=== PATIENT | female | born 1950 | race Hispanic/Latino ===

== ENCOUNTER 2017-07-14 13:24 | Inpatient (IN) | payer MEDICARE ==
[2017-07-14 14:52] LABS: Anion Gap 20 mmol/L; BUN/Creatinine Ratio 10; Blood Urea Nitrogen 9 mg/dL (7-17); Calcium 9.1 mg/dL (8.4-10.2); Carbon Dioxide 22 mmol/L (22-30); Chloride 97.9 mmol/L (98-107); Glucose 102 mg/dL (65-100); Potassium 4.1 mmol/L (3.6-5.0); Sodium 136 mmol/L (137-145)
[2017-07-14 14:56] LABS: Basophils % (Auto) 2.1 % (0.0-1.8); Eosinophils % (Auto) 4.2 % (0.0-4.3); Hematocrit 36.1 % (30.3-42.9); Hemoglobin 12.1 gm/dl (10.1-14.3); Mean Corpuscular HGB Conc 34 % (30-34); Mean Corpuscular Hemoglobin 32 pg (28-32); Mean Corpuscular Volume 94 fl (79-97); Platelet Count 311 K/mm3 (140-440); Red Blood Count 3.83 M/mm3 (3.65-5.03); Red Cell Distribution Width 13.6 % (13.2-15.2); White Blood Count 7.1 K/mm3 (4.5-11.0)
--- NOTE | 2017-07-14 15:20 | Emergency Department Report ---
History of Present Illness - General Chief Complaint: Psych Stated Complaint: SUICIDAL Time Seen by Provider: 07/14/17 15:10 Source: patient Mode of arrival: Ambulatory Limitations: No Limitations - History of Present Illness Initial Comments: Patient is a poor historian and somewhat lethargic. She is not very cooperative. She states that she took an overdose. She states that she removed 30 Effexor from a blister pack and took them all at or about 10 PM last night. She states that she might have taken some Klonopin but isn't sure. She also states she isn't sure if she took any other type of medication. The patient has a history of prior clonidine overdose she seems to be saying. She has a history of bipolar disorder. She claims that she took this overdose with intent of self-harm. She is laying on the gurney peacefully. She has no specific complaint. MD Complaint: intentional overdose -: hour(s) Intent: suicide attempt Context: Intentional Overdose: other (bipolar disorder) Associated Symptoms: depression Treatments Prior to Arrival: none - Related Data Home Medications Medication Instructions Recorded Confirmed Last Taken ARIPiprazole [Abilify] 10 mg PO DAILY 03/26/16 03/26/16 Unknown AtorvaSTATin [Lipitor] 20 mg PO DAILY 03/26/16 03/26/16 Unknown Lisinopril [Zestril TAB] 10 mg PO QDAY 03/26/16 03/26/16 Unknown Phenytoin [Dilantin] 100 mg PO BID 03/26/16 03/26/16 Unknown amLODIPine [Norvasc] 5 mg PO DAILY 03/26/16 03/26/16 Unknown Previous Rx's Medication Instructions Recorded Last Taken Type [place] Carbonate [Eskalith] 300 mg PO BID #60 capsule 03/30/16 Unknown Rx Allergies Allergy/AdvReac Type Severity Reaction Status Date / Time lidocaine Allergy Itching Verified 07/14/17 13:58 hydrochlorothiazide AdvReac Unknown Verified 07/30/15 01:01 ED Review of Systems ROS: Stated complaint: SUICIDAL Other details as noted in HPI Comment: All other systems reviewed and negative Psychiatric: as per HPI ED Past Medical Hx - Past Medical History Hx Hypertension: Yes Hx Seizures: Yes Hx Psychiatric Treatment: Yes (depression, staying @ [facility].) Additional medical history: HIGH CHOLESTEROL - Surgical History Hx Cholecystectomy: Yes Hx Appendectomy: Yes Additional Surgical History: back surgery x 2. colon surgery - Social History Smoking Status: Current Every Day Smoker Substance Use Type: None - Medications Home Medications: Home Medications Medication Instructions Recorded Confirmed Last Taken Type ARIPiprazole [Abilify] 10 mg PO DAILY 03/26/16 03/26/16 Unknown History AtorvaSTATin [Lipitor] 20 mg PO DAILY 03/26/16 03/26/16 Unknown History Lisinopril [Zestril TAB] 10 mg PO QDAY 03/26/16 03/26/16 Unknown History Phenytoin [Dilantin] 100 mg PO BID 03/26/16 03/26/16 Unknown History amLODIPine [Norvasc] 5 mg PO DAILY 03/26/16 03/26/16 Unknown History Manuel Garcia Ii Carbonate [Eskalith] 300 mg PO BID #60 capsule 03/30/16 Unknown Rx ED Physical Exam - General Limitations: No Limitations General appearance: alert, in no apparent distress - Head Head exam: Present: atraumatic, normocephalic - Eye Eye exam: Present: normal appearance, PERRL, EOMI. Absent: scleral icterus - ENT ENT exam: Present: mucous membranes moist - Neck Neck exam: Present: normal inspection - Respiratory Respiratory exam: Present: normal lung sounds bilaterally. Absent: respiratory distress - Cardiovascular Cardiovascular Exam: Present: regular rate, normal rhythm. Absent: systolic murmur, diastolic murmur, rubs, gallop - GI/Abdominal GI/Abdominal exam: Present: soft, normal bowel sounds. Absent: distended, tenderness, guarding, rebound, rigid - Extremities Exam Extremities exam: Present: normal inspection - Back Exam Back exam: Present: normal inspection - Neurological Exam Neurological exam: Present: alert, oriented X3, CN II-XII intact. Absent: motor sensory deficit - Psychiatric Psychiatric exam: Present: normal mood, flat affect - Skin Skin exam: Present: warm, dry, intact, normal color. Absent: rash ED Course Vital Signs 07/14/17 13:59 Temperature 97.8 F Pulse Rate 66 Respiratory 16 Rate Blood Pressure 114/70 O2 Sat by Pulse 99 Oximetry - Reevaluation(s) Reevaluation #1: Patient will be placed on a radiographer cardiac catheterization. She will be admitted to the medical service. She is currently in stable condition. 07/14/17 15:23 ED Medical Decision Making - Lab Data Result diagrams: 07/14/17 14:19 07/14/17 14:19 Laboratory Results - last 24 hr 07/14/17 07/14/17 07/14/17 14:19 14:19 14:19 WBC 7.1 RBC 3.83 Hgb 12.1 Hct 36.1 MCV 94 MCH 32 MCHC 34 RDW 13.6 Plt Count 311 Lymph % (Auto) 46.9 H [place] % (Auto) 7.2 Eos % (Auto) 4.2 Baso % (Auto) 2.1 H Lymph # 3.3 [place] # 0.5 Eos # 0.3 Baso # 0.1 Seg Neutrophils % 39.6 L Seg Neutrophils # 2.8 Sodium 136 L Potassium 4.1 Chloride 97.9 L Carbon Dioxide 22 Anion Gap 20 BUN 9 Creatinine 0.9 Estimated GFR > 60 BUN/Creatinine Ratio 10 Glucose 102 H Calcium 9.1 Plasma/Serum Alcohol < 0.01 - EKG Data -: EKG Interpreted by Ne EKG shows normal: sinus rhythm Rate: normal - EKG Data When compared to previous EKG there are: previous EKG unavailable Interpretation: other (right bundle branch block prior EKG for comparison. A tray she'll conduction delay. Borderline QTC prolongation) Critical care attestation.: If time is entered above; I have spent that time in minutes in the direct care of this critically ill patient, excluding procedure time. ED Disposition Clinical Impression: Right bundle branch block Overdose Qualifiers: Encounter type: initial encounter Injury intent: intentional self-harm Qualified Code(s): T50.902A - Poisoning by unspecified drugs, medicaments and biological substances, intentional self-harm, initial encounter Bipolar disorder Qualifiers: Active/Remission status: currently active Current bipolar episode type: depressed Current episode severity: moderate Qualified Code(s): F31.32 - Bipolar disorder, current episode depressed, moderate Disposition: DC-09 OP ADMIT IP TO THIS HOSP Is pt being admited?: Yes Does the pt Need Aspirin: Yes Condition: Stable Time of Disposition: 15:25
--- NOTE | 2017-07-14 15:40 | XRay Report ---
Chest 2 views: Compared to 03/26/16. History: Chest pain. Findings: Normal cardiomediastinal silhouette. Trachea is midline. No consolidation, pneumothorax or pleural effusion. Impression: No acute cardiopulmonary findings.
[2017-07-14 15:58] LABS: Alanine Aminotransferase 14 units/L (7-56); Albumin 3.9 g/dL (3.9-5); Albumin/Globulin Ratio 1.3 %; Alkaline Phosphatase 102 units/L (35-129); Bilirubin,Total < 0.20 mg/dL (0.1-1.2)
[2017-07-14 16:04] LABS: Salicylate < 0.3 mg/dL (2.8-20.0)
[2017-07-14 16:05] LABS: Bilirubin,Direct < 0.2 mg/dL (0-0.2)
[2017-07-14 18:12] LABS: Urine Drugs of Abuse Note Disclamer
[2017-07-14 18:47] LABS: Bilirubin,Urine NEG (Negative); Blood,Urine NEG (Negative); Ketones,Urine NEG (Negative); Leukocyte Esterase,Urine LG (Negative); Mucus,Urine FEW /HPF; Nitrite,Urine NEG (Negative); Protein,Urine <15 mg/dL mg/dL (Negative); Urobilinogen,Urine < 2.0 mg/dL (<2.0)
[2017-07-14] MEDS ORDERED: DULCOLAX PR PRN (19:07)
[2017-07-14] MEDS ORDERED: TYLENOL PO PRN (19:07)
[2017-07-14] MEDS ORDERED: MILK OF MAGNESIA PO PRN (19:07)
[2017-07-14] MEDS ORDERED: ZOFRAN IV PRN (19:07)
--- NOTE | 2017-07-14 19:18 | History and Physical Report ---
History of Present Illness Date of examination: 07/14/17 Date of admission: 07/14/17 15:26 Chief complaint: Overdose History of present illness: 67-year-old female with a history of hypertension and bipolar disorder presents to the ED after a intentional drug overdose with the medication Effexor. Patient to 30 Effexor tablets of 75 mg and ingested them at one time. Patient tells me that she did not take any other medication besides this. Patient is somewhat lethargic poor historian secondary to inability to fully cooperate. And is arousable however would not answer questions fully. She states she feels okay now and just goes back to lay down. No rash in any other appropriate questions. Do not answer why she decided to take the medications. Past History Past Medical History: hypertension. denies: acute ID, anemia, CAD, cancer, ESRD , GERD, HIV/AIDS, liver disease, migraines, seizures Past Surgical History: Other (back surgery) Social history: lives with family, smoking, full code. denies: alcohol abuse, prescription drug abuse Family history: no significant family history Medications and Allergies Allergies Allergy/AdvReac Type Severity Reaction Status Date / Time lidocaine Allergy Itching Verified 07/14/17 13:58 hydrochlorothiazide AdvReac Unknown Verified 07/30/15 01:01 Home Medications Medication Instructions Recorded Confirmed Last Taken Type ARIPiprazole [Abilify] 10 mg PO DAILY 03/26/16 03/26/16 Unknown History AtorvaSTATin [Lipitor] 20 mg PO DAILY 03/26/16 03/26/16 Unknown History Lisinopril [Zestril TAB] 10 mg PO QDAY 03/26/16 03/26/16 Unknown History Phenytoin [Dilantin] 100 mg PO BID 03/26/16 03/26/16 Unknown History amLODIPine [Norvasc] 5 mg PO DAILY 03/26/16 03/26/16 Unknown History [place] Carbonate [Eskalith] 300 mg PO BID #60 capsule 03/30/16 Unknown Rx Active Meds: Active Medications Acetaminophen (Tylenol) 650 mg PO Q4H PRN PRN Reason: Pain MILD(1-3)/Fever >100.5/WRIGHT Amlodipine Besylate (Norvasc) 5 mg PO DAILY BUDDY Aripiprazole (Abilify) 10 mg PO DAILY B[facility] Bisacodyl (Dulcolax) 10 mg [place] QDAY PRN PRN Reason: Constipation unrelieved by MOM Enoxaparin Sodium (Lovenox) 30 mg SUB-Q QDAY [facility] Famotidine (Pepcid) 20 mg IV BID [facility] Sodium Chloride (Nacl 0.9% 1000 Ml) 1,000 mls @ 125 mls/hr IV DIRECT BUDDY Lisinopril (Zestril) 10 mg PO QDAY [facility] [place] Carbonate (Eskalith) 300 mg PO BID [facility] Magnesium Hydroxide (Milk Of Magnesia) 30 ml PO Q4H PRN PRN Reason: Constipation Ondansetron HCl (Zofran) 4 mg IV Q8H PRN PRN Reason: N/V unrelieved by Reglan Phenytoin (Dilantin) 100 mg PO BID [facility] Review of Systems ROS unobtainable: due to mental status Constitutional: no chills, no anorexia, no fatigue Ears, nose, mouth and throat: no tinnitis, no nasal congestion, no dysphagia Cardiovascular: no chest pain, no orthopnea, no palpitations, no rapid/ irregular heart beat, no edema, no syncope, no lightheadedness, no shortness of breath, no dyspnea on exertion, no paroxysmal nocturnal dyspnea, no claudication , no phlebitis, no high blood pressure, no leg edema Respiratory: no cough, no excessive sputum, no shortness of breath Gastrointestinal: no hematochezia, no heartburn Musculoskeletal: low back pain, no neck stiffness, no neck pain, no shooting arm pain, no arm numbness/tingling, no shooting leg pain, no leg numbness/ tingling, no morning stiffness, no muscle weakness Neurological: seizures, no head injury, no transient paralysis, no paralysis, no weakness, no numbness, no change in speech, no confusion, no memory loss, no changes in smell/taste Psychiatric: anxiety, insomnia, suicidal ideation, depression, mood swings, no memory loss, no change in sleep habits, no sleep disturbances, no hypersomnia, no change in appetite, no change in libido, no disorientation, no hallucinations , no paranoia, no hopelessness, no anhedonia, no anxiety attacks, no difficulties concentrating, no irritability, no sadness/tearfullness Endocrine: no cold intolerance Hematologic/Lymphatic: no easy bleeding, no lymphadenopathy Exam - Constitutional Vitals: Temp Pulse Resp BP Pulse Ox 98.6 F 70 18 114/70 99 07/14/17 16:00 07/14/17 18:09 07/14/17 16:00 07/14/17 13:59 07/14/17 16:00 General appearance: Present: no acute distress, well-nourished - EENT Eyes: Present: PERRL ENT: hearing intact, clear oral mucosa - Neck Neck: Present: supple, normal ROM - Respiratory Respiratory effort: normal Respiratory: bilateral: CTA - Cardiovascular Heart Sounds: Present: S1 & S2. Absent: rub, click - Extremities Extremities: pulses symmetrical, No edema Peripheral Pulses: within normal limits - Abdominal General gastrointestinal: Present: soft, non-tender, non-distended, normal bowel sounds Female genitourinary: Present: normal - Integumentary Integumentary: Present: clear, warm, dry - Musculoskeletal Musculoskeletal: gait normal, strength equal bilaterally - Psychiatric Psychiatric: appropriate mood/affect, intact judgment & insight - Neurologic Neurologic: CNII-XII intact, moves all extremities Results - Labs CBC & Chem 7: 07/14/17 14:19 07/14/17 14:19 Labs: Laboratory Last Values WBC 7.1 K/mm3 (4.5-11.0) 07/14/17 14:19 RBC 3.83 M/mm3 (3.65-5.03) 07/14/17 14:19 Hgb 12.1 gm/dl (10.1-14.3) 07/14/17 14:19 Hct 36.1 % (30.3-42.9) 07/14/17 14:19 MCV 94 fl (79-97) 07/14/17 14:19 MCH 32 pg (28-32) 07/14/17 14:19 MCHC 34 % (30-34) 07/14/17 14:19 RDW 13.6 % (13.2-15.2) 07/14/17 14:19 Plt Count 311 K/mm3 (140-440) 07/14/17 14:19 Lymph % (Auto) 46.9 % (13.4-35.0) H 07/14/17 14:19 [place] % (Auto) 7.2 % (0.0-7.3) 07/14/17 14:19 Eos % (Auto) 4.2 % (0.0-4.3) 07/14/17 14:19 Baso % (Auto) 2.1 % (0.0-1.8) H 07/14/17 14:19 Lymph # 3.3 K/mm3 (1.2-5.4) 07/14/17 14:19 [place] # 0.5 K/mm3 (0.0-0.8) 07/14/17 14:19 Eos # 0.3 K/mm3 (0.0-0.4) 07/14/17 14:19 Baso # 0.1 K/mm3 (0.0-0.1) 07/14/17 14:19 Seg Neutrophils % 39.6 % (40.0-70.0) L 07/14/17 14:19 Seg Neutrophils # 2.8 K/mm3 (1.8-7.7) 07/14/17 14:19 Sodium 136 mmol/L (137-145) L 07/14/17 14:19 Potassium 4.1 mmol/L (3.6-5.0) 07/14/17 14:19 Chloride 97.9 mmol/L (98-107) L 07/14/17 14:19 Carbon Dioxide 22 mmol/L (22-30) 07/14/17 14:19 Anion Gap 20 mmol/L 07/14/17 14:19 BUN 9 mg/dL (7-17) 07/14/17 14:19 Creatinine 0.9 mg/dL (0.7-1.2) 07/14/17 14:19 Estimated GFR > 60 ml/min 07/14/17 14:19 BUN/Creatinine Ratio 10 % 07/14/17 14:19 Glucose 102 mg/dL (65-100) H 07/14/17 14:19 Calcium 9.1 mg/dL (8.4-10.2) 07/14/17 14:19 Total Bilirubin < 0.20 mg/dL (0.1-1.2) 07/14/17 15:18 Direct Bilirubin < 0.2 mg/dL (0-0.2) 07/14/17 15:18 Indirect Bilirubin 0.0 mg/dL 07/14/17 15:18 AST 15 units/L (5-40) 07/14/17 15:18 ALT 14 units/L (7-56) 07/14/17 15:18 Alkaline Phosphatase 102 units/L (35-129) 07/14/17 15:18 Total Creatine Kinase 107 units/L (30-135) 07/14/17 15:18 Total Protein 7.0 g/dL (6.3-8.2) 07/14/17 15:18 Albumin 3.9 g/dL (3.9-5) 07/14/17 15:18 Albumin/Globulin Ratio 1.3 % 07/14/17 15:18 Urine Color Yellow (Yellow) 07/14/17 18:00 Urine Turbidity Clear (Clear) 07/14/17 18:00 Urine pH 5.0 (5.0-7.0) 07/14/17 18:00 Ur Specific [place] 1.009 (1.003-1.030) 07/14/17 18:00 Urine Protein <15 mg/dl mg/dL (Negative) 07/14/17 18:00 Urine Glucose (UA) Neg mg/dL (Negative) 07/14/17 18:00 Urine Ketones Neg mg/dL (Negative) 07/14/17 18:00 Urine Blood Neg (Negative) 07/14/17 18:00 Urine Nitrite Neg (Negative) 07/14/17 18:00 Urine Bilirubin Neg (Negative) 07/14/17 18:00 Urine Urobilinogen < 2.0 mg/dL (<2.0) 07/14/17 18:00 Ur Leukocyte Esterase Lg (Negative) 07/14/17 18:00 Urine WBC (Auto) 118.0 /HPF (0.0-6.0) H 07/14/17 18:00 Urine RBC (Auto) 7.0 /HPF (0.0-6.0) 07/14/17 18:00 U Epithel Cells (Auto) 2.0 /HPF (0-13.0) 07/14/17 18:00 Urine Mucus Few /HPF 07/14/17 18:00 Salicylates < 0.3 mg/dL (2.8-20.0) L 07/14/17 15:18 Urine Opiates Screen Presumptive negative 07/14/17 18:00 Urine Methadone Screen Presumptive negative 07/14/17 18:00 Acetaminophen < 15.0 ug/mL (10.0-30.0) 07/14/17 15:18 Ur Barbiturates Screen Presumptive negative 07/14/17 18:00 Phenytoin 1.7 ug/mL (10.0-20.0) L 07/14/17 15:18 Ur Phencyclidine Scrn Presumptive negative 07/14/17 18:00 Ur Amphetamines Screen Presumptive negative 07/14/17 18:00 Phenobarbital < 2.4 mg/L (15.0-40.0) L 07/14/17 15:18 U Benzodiazepines Scrn Presumptive positive 07/14/17 18:00 Urine Cocaine Screen Presumptive negative 07/14/17 18:00 U Marijuana (THC) Screen Presumptive negative 07/14/17 18:00 Drugs of Abuse Note Disclamer 07/14/17 18:00 Plasma/Serum Alcohol < 0.01 gm% (0-0.07) 07/14/17 14:19 - Imaging and Cardiology EKG: image reviewed Assessment and Plan Advance Directives: Yes VTE prophylaxis?: Chemical Plan of care discussed with patient/family: Yes - Patient Problems (1) Bipolar disorder Current Visit: Yes Status: Acute Qualifiers: Active/Remission status: currently active Current bipolar episode type: depressed Current episode severity: moderate Psychotic features: P Most recent bipolar episode type: M Qualified Code(s): F31.32 - Bipolar disorder, current episode depressed, moderate Plan to address problem: At this time will not give patient Abilify and antidepressant at this time. Unsure exactly what patient has taken at this point. I do feel comfortable treating her for tension and seizure medications with Dilantin. Antipsychotic medications or antidepressants at this time. Patient appears hemodynamically stable at this time. I did review EKG and did not appreciate any prolonged QT interval. Did see borderline right bundle. Nothing acute. Also on physical exam no arrhythmia noted problems with blood pressure or pulse. No clear electrolyte abnormalities well. (2) Overdose Current Visit: Yes Status: Acute Qualifiers: Encounter type: initial encounter Injury intent: intentional self-harm Qualified Code(s): T50.902A - Poisoning by unspecified drugs, medicaments and biological substances, intentional self-harm, initial encounter Plan to address problem: As mentioned above I did not see any prolonged QT interval. No electrolyte abnormalities. Patient vitals has been stable. Patient does appear to be serious about suicide. Patient also was had a previous attempted suicide before patient is taken seriously and will place patient on 1013 and have psychiatry evaluation. (3) Seizure disorder Current Visit: No Status: Acute Plan to address problem: No seizure but will resume seizure medications Dilantin level was therapeutic. (4) Hypertension Current Visit: No Status: Chronic Qualifiers: Hypertension type: H Plan to address problem: Resume antihypertensives. Patient hemoglobin stable.
[2017-07-14] MEDS: DILANTIN PO SCH (21:28)
[2017-07-14] MEDS: PEPCID IV SCH (21:28)
[2017-07-14] MEDS: ESKALITH PO SCH (21:28)
[2017-07-14] MEDS ORDERED: BENADRYL PO ONE (22:45)
[2017-07-15] MEDS: NACL 0.9% 1000 ML 1,000 ML IV SCH ×2 (03:48→11:11)
[2017-07-15 05:10] LABS: Eosinophils % (Auto) 6.7 % (0.0-4.3); Hematocrit 33.3 % (30.3-42.9); Hemoglobin 11.3 gm/dl (10.1-14.3); Mean Corpuscular HGB Conc 34 % (30-34); Mean Corpuscular Hemoglobin 32 pg (28-32); Mean Corpuscular Volume 94 fl (79-97); Platelet Count 276 K/mm3 (140-440); Red Blood Count 3.53 M/mm3 (3.65-5.03); Red Cell Distribution Width 13.8 % (13.2-15.2); White Blood Count 5.2 K/mm3 (4.5-11.0)
[2017-07-15] MEDS ORDERED: ZESTRIL PO SCH (10:00)
[2017-07-15] MEDS ORDERED: ABILIFY PO SCH (10:00)
[2017-07-15] MEDS ORDERED: NORVASC PO SCH (10:00)
[2017-07-15] MEDS ORDERED: LOVENOX SUB-Q SCH (10:00)
--- NOTE | 2017-07-15 10:44 | Progress Note ---
Assessment and Plan Assessment and plan: 67-year-old female with a history of hypertension and bipolar disorder presents to the ED after a intentional drug overdose with the medication Effexor. Patient to 30 Effexor tablets of 75 mg and ingested them at one time. Patient tells me that she did not take any other medication besides this. Patient is somewhat lethargic poor historian secondary to inability to fully cooperate. And is arousable however would not answer questions fully. She states she feels okay now and just goes back to lay down. No rash in any other appropriate questions. Do not answer why she decided to take the medications (1) Bipolar disorder Current Visit: Yes Status: Acute Qualifiers: Active/Remission status: currently active Current bipolar episode type: depressed Current episode severity: moderate Psychotic features: P Most recent bipolar episode type: M Qualified Code(s): F31.32 - Bipolar disorder, current episode depressed, moderate Plan to address problem: At this time will not give patient Abilify and antidepressant at this time. Unsure exactly what patient has taken at this point. I do feel comfortable treating her for tension and seizure medications with Dilantin. Antipsychotic medications or antidepressants at this time. Patient appears hemodynamically stable at this time. I did review EKG and did not appreciate any prolonged QT interval. Did see borderline right bundle. Nothing acute. Also on physical exam no arrhythmia noted problems with blood pressure or pulse. No clear electrolyte abnormalities well. (2) Overdose Current Visit: Yes Status: Acute Qualifiers: Encounter type: initial encounter Injury intent: intentional self-harm Qualified Code(s): T50.902A - Poisoning by unspecified drugs, medicaments and biological substances, intentional self-harm, initial encounter Plan to address problem: As mentioned above I did not see any prolonged QT interval. No electrolyte abnormalities. Patient vitals has been stable. Patient does appear to be serious about suicide. Patient also was had a previous attempted suicide before patient is taken seriously and will place patient on 1013 and have psychiatry evaluation. (3) Seizure disorder Current Visit: No Status: Acute Plan to address problem: No seizure but will resume seizure medications Dilantin level was therapeutic. (4) Hypertension Current Visit: No Status: Chronic Qualifiers: Hypertension type: H Plan to address problem: Resume antihypertensives. Patient hemoglobin stable. Hospitalist Physical - Constitutional Vitals: Temp Pulse Resp BP Pulse Ox 95.6 F L 67 20 125/68 96 07/15/17 07:23 07/15/17 07:23 07/15/17 07:23 07/15/17 07:23 07/15/17 07:23 General appearance: Present: no acute distress, well-nourished Results - Labs CBC & Chem 7: 07/15/17 04:46 07/14/17 14:19 Labs: Laboratory Last Values WBC 5.2 K/mm3 (4.5-11.0) 07/15/17 04:46 RBC 3.53 M/mm3 (3.65-5.03) L 07/15/17 04:46 Hgb 11.3 gm/dl (10.1-14.3) 07/15/17 04:46 Hct 33.3 % (30.3-42.9) 07/15/17 04:46 MCV 94 fl (79-97) 07/15/17 04:46 MCH 32 pg (28-32) 07/15/17 04:46 MCHC 34 % (30-34) 07/15/17 04:46 RDW 13.8 % (13.2-15.2) 07/15/17 04:46 Plt Count 276 K/mm3 (140-440) 07/15/17 04:46 Lymph % (Auto) 39.1 % (13.4-35.0) H 07/15/17 04:46 [place] % (Auto) 10.8 % (0.0-7.3) H 07/15/17 04:46 Eos % (Auto) 6.7 % (0.0-4.3) H 07/15/17 04:46 Baso % (Auto) 1.0 % (0.0-1.8) 07/15/17 04:46 Lymph # 2.0 K/mm3 (1.2-5.4) 07/15/17 04:46 [place] # 0.6 K/mm3 (0.0-0.8) 07/15/17 04:46 Eos # 0.3 K/mm3 (0.0-0.4) 07/15/17 04:46 Baso # 0.1 K/mm3 (0.0-0.1) 07/15/17 04:46 Seg Neutrophils % 42.4 % (40.0-70.0) 07/15/17 04:46 Seg Neutrophils # 2.2 K/mm3 (1.8-7.7) 07/15/17 04:46 Sodium 136 mmol/L (137-145) L 07/14/17 14:19 Potassium 4.1 mmol/L (3.6-5.0) 07/14/17 14:19 Chloride 97.9 mmol/L (98-107) L 07/14/17 14:19 Carbon Dioxide 22 mmol/L (22-30) 07/14/17 14:19 Anion Gap 20 mmol/L 07/14/17 14:19 BUN 9 mg/dL (7-17) 07/14/17 14:19 Creatinine 0.9 mg/dL (0.7-1.2) 07/14/17 14:19 Estimated GFR > 60 ml/min 07/14/17 14:19 BUN/Creatinine Ratio 10 % 07/14/17 14:19 Glucose 102 mg/dL (65-100) H 07/14/17 14:19 Calcium 9.1 mg/dL (8.4-10.2) 07/14/17 14:19 Total Bilirubin < 0.20 mg/dL (0.1-1.2) 07/14/17 15:18 Direct Bilirubin < 0.2 mg/dL (0-0.2) 07/14/17 15:18 Indirect Bilirubin 0.0 mg/dL 07/14/17 15:18 AST 15 units/L (5-40) 07/14/17 15:18 ALT 14 units/L (7-56) 07/14/17 15:18 Alkaline Phosphatase 102 units/L (35-129) 07/14/17 15:18 Total Creatine Kinase 107 units/L (30-135) 07/14/17 15:18 Total Protein 7.0 g/dL (6.3-8.2) 07/14/17 15:18 Albumin 3.9 g/dL (3.9-5) 07/14/17 15:18 Albumin/Globulin Ratio 1.3 % 07/14/17 15:18 Urine Color Yellow (Yellow) 07/14/17 18:00 Urine Turbidity Clear (Clear) 07/14/17 18:00 Urine pH 5.0 (5.0-7.0) 07/14/17 18:00 Ur Specific [place] 1.009 (1.003-1.030) 07/14/17 18:00 Urine Protein <15 mg/dl mg/dL (Negative) 07/14/17 18:00 Urine Glucose (UA) Neg mg/dL (Negative) 07/14/17 18:00 Urine Ketones Neg mg/dL (Negative) 07/14/17 18:00 Urine Blood Neg (Negative) 07/14/17 18:00 Urine Nitrite Neg (Negative) 07/14/17 18:00 Urine Bilirubin Neg (Negative) 07/14/17 18:00 Urine Urobilinogen < 2.0 mg/dL (<2.0) 07/14/17 18:00 Ur Leukocyte Esterase Lg (Negative) 07/14/17 18:00 Urine WBC (Auto) 118.0 /HPF (0.0-6.0) H 07/14/17 18:00 Urine RBC (Auto) 7.0 /HPF (0.0-6.0) 07/14/17 18:00 U Epithel Cells (Auto) 2.0 /HPF (0-13.0) 07/14/17 18:00 Urine Mucus Few /HPF 07/14/17 18:00 Salicylates < 0.3 mg/dL (2.8-20.0) L 07/14/17 15:18 Urine Opiates Screen Presumptive negative 07/14/17 18:00 Urine Methadone Screen Presumptive negative 07/14/17 18:00 Acetaminophen < 15.0 ug/mL (10.0-30.0) 07/14/17 15:18 Ur Barbiturates Screen Presumptive negative 07/14/17 18:00 Phenytoin 1.7 ug/mL (10.0-20.0) L 07/14/17 15:18 Ur Phencyclidine Scrn Presumptive negative 07/14/17 18:00 Ur Amphetamines Screen Presumptive negative 07/14/17 18:00 Phenobarbital < 2.4 mg/L (15.0-40.0) L 07/14/17 15:18 U Benzodiazepines Scrn Presumptive positive 07/14/17 18:00 Urine Cocaine Screen Presumptive negative 07/14/17 18:00 U Marijuana (THC) Screen Presumptive negative 07/14/17 18:00 Drugs of Abuse Note Disclamer 07/14/17 18:00 Plasma/Serum Alcohol < 0.01 gm% (0-0.07) 07/14/17 14:19
[2017-07-15] MEDS: ESKALITH PO SCH (11:13)
[2017-07-15] MEDS: PEPCID IV SCH (11:14)
[2017-07-15] MEDS: LOVENOX SUB-Q SCH ×2 (11:14→11:21)
[2017-07-15] MEDS: DILANTIN PO SCH (11:14)
[2017-07-15] MEDS ORDERED: MOTRIN PO PRN (13:16)
[2017-07-15] MEDS ORDERED: HABITROL TD SCH (15:00)
--- NOTE | 2017-07-15 16:28 | Discharge Summary ---
Providers - Providers Date of Admission: 07/14/17 15:26 Attending physician: JEREMY PIEDRA MD Primary care physician: MARBLE HELPER Hospitalization Condition: Stable Hospital course: 67-year-old female with a history of hypertension and bipolar disorder presents to the ED after a intentional drug overdose with the medication Effexor. Patient to 30 Effexor tablets of 75 mg and ingested them at one time. Patient tells me that she did not take any other medication besides this. Patient is somewhat lethargic poor historian secondary to inability to fully cooperate. And is arousable however would not answer questions fully. She states she feels okay now and just goes back to lay down. No rash in any other appropriate questions. Do not answer why she decided to take the medications (1) Bipolar disorder Current Visit: Yes Status: Acute Qualifiers: Active/Remission status: currently active Current bipolar episode type: depressed Current episode severity: moderate Psychotic features: P Most recent bipolar episode type: M Qualified Code(s): F31.32 - Bipolar disorder, current episode depressed, moderate Plan to address problem: At this time will not give patient Abilify and antidepressant at this time. Unsure exactly what patient has taken at this point. I do feel comfortable treating her for tension and seizure medications with Dilantin. Antipsychotic medications or antidepressants at this time. Patient appears hemodynamically stable at this time. I did review EKG and did not appreciate any prolonged QT interval. Did see borderline right bundle. Nothing acute. Also on physical exam no arrhythmia noted problems with blood pressure or pulse. No clear electrolyte abnormalities well. (2) Overdose Current Visit: Yes Status: Acute Qualifiers: Encounter type: initial encounter Injury intent: intentional self-harm Qualified Code(s): T50.902A - Poisoning by unspecified drugs, medicaments and biological substances, intentional self-harm, initial encounter Plan to address problem: As mentioned above I did not see any prolonged QT interval. No electrolyte abnormalities. Patient vitals has been stable. Patient does appear to be serious about suicide. Patient also was had a previous attempted suicide before patient is taken seriously and will place patient on 1013 and have psychiatry evaluation. (3) Seizure disorder Current Visit: No Status: Acute Plan to address problem: No seizure but will resume seizure medications Dilantin level was therapeutic. (4) Hypertension Current Visit: No Status: Chronic Qualifiers: Hypertension type: H Plan to address problem: Resume antihypertensives. Patient hemoglobin stable. Disposition: DC/TX-65 PSY HOSP/PSY UNIT Exam - Constitutional Vitals: Temp Pulse Resp BP Pulse Ox 98.3 F 85 18 129/62 97 07/15/17 13:38 07/15/17 13:38 07/15/17 15:20 07/15/17 13:38 07/15/17 11:16 Plan Activity: advance as tolerated, fall precautions Diet: regular Follow up with: PRIMARY CAREMD [Primary Care Provider] - 7 Days
[2017-07-15 16:35] VITALS: BP 114/59
== END 2017-07-15 19:45 | DRG 918 ==
LOC: ED 13:24 → 4A 15:26
PROVIDERS: ADMIT Internal Medicine; ATTEND Internal Medicine
DX: T43.212A Poisoning by selective serotonin and norepinephrine reuptake inhibitors, intentional self-harm, initial encounter (principal); I45.10 Unspecified right bundle-branch block; F31.9 Bipolar disorder, unspecified; I10 Essential (primary) hypertension; G40.909 Epilepsy, unspecified, not intractable, without status epilepticus; Y92.89 Other specified places as the place of occurrence of the external cause; Z88.8 Allergy status to other drugs, medicaments and biological substances
CPT/HCPCS: 36415; 71020; 80048; 80074; 80184; 80185; 80307; 80320; 81001; 82550; 85025; 93005; 93010; G0480; J1650; J7030

== ENCOUNTER 2017-07-22 19:43 | Emergency (ER) | payer MEDICAID, MEDICARE ==
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
[2017-07-22] MEDS ORDERED: NACL 0.9% IR ONE (22:39)
[2017-07-22] MEDS ORDERED: TRIPLE ANTIBIOTIC TP ONE ×2 (22:52→23:08)
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
--- NOTE | 2017-07-23 00:25 | XRay Report ---
FINAL REPORT EXAM: XR FOREARM RT HISTORY: TRAUMA.....RT FA PAIN COMPARISON: None available. FINDINGS: Two views of right forearm obtained. Bony structures are intact. Joint spaces are preserved. No acute fracture dislocation. IMPRESSION: No acute bony abnormality.
--- NOTE | 2017-07-23 00:29 | XRay Report ---
FINAL REPORT EXAM: XR KNEE 3V LT HISTORY: TRAUMA....LT KNEE PAIN COMPARISON: None available. FINDINGS: Three views of the left knee obtained. Bony structures are intact. Joint spaces are preserved. No acute fracture dislocation. IMPRESSION: No acute bony abnormality.
[2017-07-23 02:35] VITALS: BP 116/68
== END 2017-07-23 04:02 | disposition other institution (70) ==
LOC: ED 19:43
DX: S50.811A Abrasion of right forearm, initial encounter (principal); S80.02XA Contusion of left knee, initial encounter; I10 Essential (primary) hypertension; E11.9 Type 2 diabetes mellitus without complications; E78.00 Pure hypercholesterolemia, unspecified; F17.210 Nicotine dependence, cigarettes, uncomplicated; Z88.8 Allergy status to other drugs, medicaments and biological substances; Z88.4 Allergy status to anesthetic agent; Y04.8XXA Assault by other bodily force, initial encounter; Y93.89 Activity, other specified; Y92.89 Other specified places as the place of occurrence of the external cause; Y99.8 Other external cause status
CPT/HCPCS: 70450; 99284; A6250

== ENCOUNTER 2017-12-29 08:01 | Inpatient (IN) | payer MEDICARE ==
--- NOTE | 2017-12-29 09:49 | Cat Scan Report ---
CT head without contrast: Dizziness and fall with trauma to head. Unenhanced axial views demonstrates minimal peripheral atrophy and mild decreased periventricular white matter change. No focal lesion, mass effect, hemorrhage, nor extra-axial collection identified. The visualized bones and paranasal sinuses as well as the soft tissues are unremarkable. The findings are unchanged compared to prior exam in July 2017. Impression: Senescent changes consistent with age. No acute finding.
[2017-12-29] MEDS ORDERED: NACL 0.9% 1000 ML 1,000 ML IV ONE (12:51)
[2017-12-29 12:56] LABS: Basophils % (Auto) 0.3 % (0.0-1.8); Eosinophils % (Auto) 0.1 % (0.0-4.3); Hematocrit 41.8 % (30.3-42.9); Hemoglobin 13.9 gm/dl (10.1-14.3); Lymphocytes # (Auto) 1.9 K/mm3 (1.2-5.4); Mean Corpuscular HGB Conc 33 % (30-34); Mean Corpuscular Hemoglobin 32 pg (28-32); Mean Corpuscular Volume 96 fl (79-97); Monocytes # (Auto) 0.7 K/mm3 (0.0-0.8); Monocytes % (Auto) 7.7 % (0.0-7.3); Platelet Count 260 K/mm3 (140-440); Red Blood Count 4.37 M/mm3 (3.65-5.03); Red Cell Distribution Width 14.1 % (13.2-15.2)
[2017-12-29 13:07] LABS: INR 0.91 (0.87-1.13)
[2017-12-29 13:08] LABS: Partial Thromboplastin Time 27.5 Sec. (24.2-36.6)
[2017-12-29 13:12] LABS: Alanine Aminotransferase 16 units/L (7-56); Albumin 4.5 g/dL (3.9-5); BUN/Creatinine Ratio 14; Blood Urea Nitrogen 7 mg/dL (7-17); Calcium 9.5 mg/dL (8.4-10.2); Hemolysis Index 42
[2017-12-29 13:16] LABS: Bilirubin,Direct < 0.2 mg/dL (0-0.2)
--- NOTE | 2017-12-29 13:55 | Emergency Department Report ---
ED General Adult HPI - General Chief complaint: Medical Clearance Stated complaint: WEAKNESS Time Seen by Provider: 12/29/17 12:23 Source: patient Mode of arrival: Ambulatory Limitations: No Limitations - History of Present Illness Initial comments: Patient states that she is has been weak and "shaky" for the past 2-3 days. Yesterday she stated that she was going down the stairs and fell and hit her head. She states that she lost consciousness. She denies neck pain or back pain. She denies headache. She is alert he had a CT of her head which showed nothing acute. She states in addition that she has been suffering with insomnia for the past 3 days. This morning she was in the bathroom and almost passed out again. She admits that her food and fluid consumption have been poor over the last several days. She denies fever or chills. -: Gradual, days(s) Consistency: constant (weakness does not complain of pain) Improves with: none Worsens with: none Associated Symptoms: denies other symptoms Treatments Prior to Arrival: none - Related Data Home Medications Medication Instructions Recorded Confirmed Last Taken AtorvaSTATin [Lipitor] 20 mg PO DAILY 03/26/16 03/26/16 Unknown Lisinopril [Zestril TAB] 10 mg PO QDAY 03/26/16 03/26/16 Unknown Phenytoin [Dilantin] 100 mg PO BID 03/26/16 03/26/16 Unknown amLODIPine [Norvasc] 5 mg PO DAILY 03/26/16 03/26/16 Unknown Previous Rx's Medication Instructions Recorded Last Taken Type [place] Carbonate [Eskalith] 300 mg PO BID #60 capsule 03/30/16 Unknown Rx Acetaminophen [Tylenol Extra 500 mg PO Q6HR PRN #14 tablet 07/23/17 Unknown Rx Strength] Allergies Allergy/AdvReac Type Severity Reaction Status Date / Time lidocaine Allergy Itching Verified 07/14/17 13:58 hydrochlorothiazide AdvReac Unknown Verified 07/30/15 01:01 ED Review of Systems ROS: Stated complaint: WEAKNESS Other details as noted in HPI Constitutional: weakness. denies: chills, fever Eyes: denies: eye pain, eye discharge, vision change ENT: denies: ear pain, throat pain Respiratory: denies: cough, shortness of breath, wheezing Cardiovascular: syncope. denies: chest pain, palpitations Endocrine: no symptoms reported Gastrointestinal: denies: abdominal pain, nausea, diarrhea Genitourinary: denies: urgency, dysuria, discharge Musculoskeletal: denies: back pain, joint swelling, arthralgia Skin: denies: rash, lesions Neurological: denies: headache, weakness, paresthesias Psychiatric: denies: anxiety, depression Hematological/Lymphatic: denies: easy bleeding, easy bruising ED Past Medical Hx - Past Medical History Hx Hypertension: Yes Hx Diabetes: No Hx Seizures: Yes Hx Psychiatric Treatment: Yes (depression, staying @ [facility], Bipolar , manic depression) Additional medical history: HIGH CHOLESTEROL, Back surgery x 2, DJD, Neuropathy , Colon surgery - Surgical History Hx Cholecystectomy: Yes Hx Appendectomy: Yes Additional Surgical History: back surgery x 2. colon surgery - Social History Smoking Status: Current Every Day Smoker Substance Use Type: None - Medications Home Medications: Home Medications Medication Instructions Recorded Confirmed Last Taken Type AtorvaSTATin [Lipitor] 20 mg PO DAILY 03/26/16 03/26/16 Unknown History Lisinopril [Zestril TAB] 10 mg PO QDAY 03/26/16 03/26/16 Unknown History Phenytoin [Dilantin] 100 mg PO BID 03/26/16 03/26/16 Unknown History amLODIPine [Norvasc] 5 mg PO DAILY 03/26/16 03/26/16 Unknown History [place] Carbonate [Eskalith] 300 mg PO BID #60 capsule 03/30/16 Unknown Rx Acetaminophen [Tylenol Extra 500 mg PO Q6HR PRN #14 tablet 07/23/17 Unknown Rx Strength] ED Physical Exam - General Limitations: No Limitations General appearance: alert, in no apparent distress, other (similar trial.) - Head Head exam: Present: atraumatic, normocephalic - Eye Eye exam: Present: normal appearance, PERRL, EOMI. Absent: scleral icterus - ENT ENT exam: Present: mucous membranes moist - Neck Neck exam: Present: normal inspection. Absent: tenderness, meningismus - Respiratory Respiratory exam: Present: normal lung sounds bilaterally. Absent: respiratory distress - Cardiovascular Cardiovascular Exam: Present: regular rate, normal rhythm. Absent: systolic murmur, diastolic murmur, rubs, gallop - GI/Abdominal GI/Abdominal exam: Present: soft, normal bowel sounds. Absent: distended, tenderness, guarding, rebound, rigid - Extremities Exam Extremities exam: Present: normal inspection - Back Exam Back exam: Present: normal inspection - Neurological Exam Neurological exam: Present: alert, oriented X3, CN II-XII intact. Absent: motor sensory deficit - Psychiatric Psychiatric exam: Present: normal mood, flat affect - Skin Skin exam: Present: warm, dry, intact, normal color. Absent: rash ED Course Vital Signs 12/29/17 12/29/17 08:20 12:24 Temperature 98.0 F Pulse Rate 82 Respiratory 16 Rate Blood Pressure 153/100 144/78 O2 Sat by Pulse 98 100 Oximetry - Reevaluation(s) Reevaluation #1: She appears somewhat volume. She was started on IV fluids. She is admitted to the hospitalist service for further care and evaluation of her syncopal episodes. 12/29/17 15:18 ED Medical Decision Making - Lab Data Result diagrams: 12/29/17 12:38 12/29/17 12:38 Laboratory Results - last 24 hr 12/29/17 12/29/17 12/29/17 12:38 12:38 12:38 WBC 8.6 RBC 4.37 Hgb 13.9 Hct 41.8 MCV 96 MCH 32 MCHC 33 RDW 14.1 Plt Count 260 Lymph % (Auto) 22.0 Teller % (Auto) 7.7 H Eos % (Auto) 0.1 Baso % (Auto) 0.3 Lymph # 1.9 Teller # 0.7 Eos # 0.0 Baso # 0.0 Seg Neutrophils % 69.9 Seg Neutrophils # 6.0 PT 12.7 INR 0.91 APTT 27.5 Sodium 135 L Potassium 4.2 Chloride 96.3 L Carbon Dioxide 20 L Anion Gap 23 BUN 7 Creatinine 0.5 L Estimated GFR > 60 BUN/Creatinine Ratio 14 Glucose 109 H Lactic Acid Calcium 9.5 Total Bilirubin 0.30 Direct Bilirubin < 0.2 Indirect Bilirubin 0.1 AST 27 ALT 16 Alkaline Phosphatase 113 Total Protein 7.9 Albumin 4.5 Albumin/Globulin Ratio 1.3 TSH Phenytoin [place] 12/29/17 12/29/17 12/29/17 12:38 12:38 13:17 WBC RBC Hgb Hct MCV MCH MCHC RDW Plt Count Lymph % (Auto) [place] % (Auto) Eos % (Auto) Baso % (Auto) Lymph # Teller # Eos # Baso # Seg Neutrophils % Seg Neutrophils # PT INR APTT Sodium Potassium Chloride Carbon Dioxide Anion Gap BUN Creatinine Estimated GFR BUN/Creatinine Ratio Glucose Lactic Acid 1.50 Calcium Total Bilirubin Direct Bilirubin Indirect Bilirubin AST ALT Alkaline Phosphatase Total Protein Albumin Albumin/Globulin Ratio TSH 1.410 Phenytoin 19.8 [place] 0.8 - EKG Data -: EKG Interpreted by Me EKG shows normal: sinus rhythm (first degree AV block) Rate: normal - EKG Data Interpretation: other (first degree AV block and right bundle branch block. Bifascicular block) - Radiology Data interpreted by me: CT head showed no acute process Critical care attestation.: If time is entered above; I have spent that time in minutes in the direct care of this critically ill patient, excluding procedure time. ED Disposition Clinical Impression: Dehydration, Psychiatric disorder, Bifascicular block Syncope Qualifiers: Syncope type: unspecified Qualified Code(s): R55 - Syncope and collapse Disposition: DC-09 OP ADMIT IP TO THIS HOSP Is pt being admited?: Yes Does the pt Need Aspirin: Yes Condition: Stable Instructions: Syncope (ED) Referrals: KIM LARSON [Other] - 3-5 Days Time of Disposition: 15:46
--- NOTE | 2017-12-29 15:10 | History and Physical Report ---
History of Present Illness Chief complaint: I dont know whats going on, im just weak, and i fell History of present illness: 67 YO Female with HTN, Seizure Disorder, Depression, Bipolar Disorder, HLD presents to ED for evaluation. Pt is confused and states that she does not know whats going on. Pt is unable to provide detailed history. Pt states that she feels weak. Pt states that she fell down the stairs at home and hit her head about 2 or 3 days ago and has also been unable to sleep for the past 3 days. Pt states that she was in the bathroom this morning, and got weak and nearly passed out again. Pt was transported to ED by family. Pt is unable to provide further history. Pt seen and evaluated in ED and found to have evidence of Post Concussive Syndrome as well as Encephalopathy. Pt admitted to medical floor. Past History Past Medical History: hypertension, hyperlipidemia, seizures, other (bipolar) Past Surgical History: appendectomy, cholecystectomy, bowel surgery Social history: , smoking Family history: no significant family history (reviewed) Medications and Allergies Allergies Allergy/AdvReac Type Severity Reaction Status Date / Time lidocaine Allergy Itching Verified 07/14/17 13:58 hydrochlorothiazide AdvReac Unknown Verified 07/30/15 01:01 Home Medications Medication Instructions Recorded Confirmed Last Taken Type [place] Carbonate [Eskalith] 300 mg PO BID #60 capsule 03/30/16 12/29/17 Rx Ascorbic Acid [Vitamin C with [place] 500 mg PO QDAY 12/29/17 12/29/17 Unknown History Hips] Phenytoin Sodium Extended 300 mg PO BID 12/29/17 12/29/17 Unknown History QUEtiapine [SEROquel] 200 mg PO HS 12/29/17 12/29/17 Unknown History Venlafaxine HCl [Venlafaxin ER] 150 mg PO QAM 12/29/17 12/29/17 Unknown History buPROPion SR [Wellbutrin Sr] 150 mg PO BID 12/29/17 12/29/17 Unknown History clonazePAM [Klonopin] 0.5 mg PO BID 12/29/17 12/29/17 Unknown History traZODone [Desyrel] 50 mg PO QHS 12/29/17 12/29/17 Unknown History Active Meds: Active Medications Sodium Chloride (Nacl 0.9% 1000 Ml) 1,000 mls @ 125 mls/hr IV ONCE ONE Stop: 12/29/17 20:50 Last Admin: 12/29/17 15:08 Dose: 125 mls/hr Review of Systems ROS unobtainable: due to mental status Exam - Constitutional Vitals: Temp Pulse Resp BP Pulse Ox 98.0 F 82 16 144/78 100 12/29/17 08:20 12/29/17 08:20 12/29/17 08:20 12/29/17 12:24 12/29/17 12:24 General appearance: Present: mild distress, cachectic - EENT Eyes: Present: PERRL ENT: hearing intact, clear oral mucosa - Neck Neck: Present: supple, normal ROM - Respiratory Respiratory effort: normal Respiratory: bilateral: CTA - Cardiovascular Heart Sounds: Present: S1 & S2. Absent: rub, click - Extremities Extremities: pulses symmetrical, No edema Peripheral Pulses: within normal limits - Abdominal General gastrointestinal: Present: soft, non-tender, non-distended, normal bowel sounds Female genitourinary: Present: normal - Integumentary Integumentary: Present: clear, dry, clammy, decreased turgor - Musculoskeletal Musculoskeletal: generalized weakness - Psychiatric Psychiatric: no intact judgment & insight, no memory intact, agitated - Neurologic Neurologic: no gait normal Results - Labs CBC & Chem 7: 12/29/17 12:38 12/29/17 12:38 Labs: Abnormal lab results 12/29/17 12/29/17 Range/Units 12:38 12:38 [place] % (Auto) 7.7 H (0.0-7.3) % Sodium 135 L (137-145) mmol/L Chloride 96.3 L (98-107) mmol/L Carbon Dioxide 20 L (22-30) mmol/L Creatinine 0.5 L (0.7-1.2) mg/dL Glucose 109 H (65-100) mg/dL Assessment and Plan - Patient Problems (1) Post concussion syndrome Current Visit: Yes Status: Acute Plan to address problem: CT head, neuro checks, fall precautions, supportive care, (2) Seizure disorder Current Visit: Yes Status: Acute Plan to address problem: [place] Level, dilantin level, EEG, neuro checks, supportive care. (3) Bipolar disorder Current Visit: No Status: Acute Qualifiers: Active/Remission status: currently active Current bipolar episode type: depressed Current episode severity: moderate Qualified Code(s): F31.32 - Bipolar disorder, current episode depressed, moderate Plan to address problem: continue current medication, psychiatry consulted for reevaluation and medication reconciliation, (4) DVT prophylaxis Current Visit: No Status: Acute Plan to address problem: SCD to BLE while in bed,
[2017-12-29] MEDS ORDERED: TYLENOL PO PRN (15:24)
[2017-12-29] MEDS ORDERED: ZOFRAN IV PRN (15:24)
[2017-12-29] MEDS ORDERED: PROVENTIL IH PRN (15:24)
[2017-12-29] MEDS ORDERED: SODIUM CHLORIDE FLUSH SYRINGE 10 ML IV PRN (15:24)
[2017-12-29] MEDS ORDERED: BABY ASPIRIN PO ONE (15:25)
[2017-12-29 20:17] LABS: Free T4 (Free Thyroxine) 0.87 ng/dL (0.76-1.46)
[2017-12-29] MEDS ORDERED: DILANTIN PO SCH (22:00)
[2017-12-29] MEDS: ESKALITH PO SCH (22:15)
[2017-12-29] MEDS: DILANTIN PO SCH (22:16)
[2017-12-29] MEDS: WELLBUTRIN SR PO SCH (22:16)
[2017-12-29] MEDS: SODIUM CHLORIDE FLUSH SYRINGE 10 ML IV SCH (22:19)
[2017-12-29] MEDS: DESYREL PO SCH (22:19)
[2017-12-30] MEDS: VITAMIN C PO SCH (09:39)
[2017-12-30] MEDS: DILANTIN PO SCH ×2 (09:39→22:41)
[2017-12-30] MEDS: ZESTRIL PO SCH (09:40)
[2017-12-30] MEDS: NORVASC PO SCH (09:40)
[2017-12-30] MEDS: WELLBUTRIN SR PO SCH ×2 (09:41→22:41)
[2017-12-30] MEDS: EFFEXOR XR PO SCH (09:41)
[2017-12-30] MEDS: SODIUM CHLORIDE FLUSH SYRINGE 10 ML IV SCH ×2 (10:03→22:43)
[2017-12-30] MEDS: ESKALITH PO SCH ×2 (10:03→22:41)
--- NOTE | 2017-12-30 11:18 | Progress Note ---
Assessment and Plan Assessment and plan: Postconcussive syndrome. CT scan of the head negative. Continue neuro checks. Fall precautions. Seizure disorder. Check lithium and Dilantin level. EEG pending. Consider Neurology consultation. Bipolar disorder. Continue current medication, psychiatry consulted for reevaluation and medication reconciliation DVT prophylaxis. Continue SCDs. Hypertension. Resume anti-hypertensive medications. Hyperlipidemia. Continue medications. History Interval history: No new issues overnight. Patient does not remember the event that transpired necessitating hospitalization. Hospitalist Physical - Constitutional Vitals: Temp Pulse Resp BP Pulse Ox 97.8 F 67 18 123/63 99 12/30/17 07:18 12/30/17 07:18 12/30/17 07:18 12/30/17 09:40 12/30/17 07:18 General appearance: Present: no acute distress, cachectic - EENT Eyes: Present: PERRL, EOM intact ENT: hearing intact, clear oral mucosa, dentition normal - Neck Neck: Present: supple, normal ROM - Respiratory Respiratory effort: normal Respiratory: bilateral: CTA - Cardiovascular Rhythm: regular Heart Sounds: Present: S1 & S2. Absent: gallop, rub - Extremities Extremities: no ischemia, No edema, Full ROM - Abdominal General gastrointestinal: soft, non-tender, non-distended, normal bowel sounds - Integumentary Integumentary: Present: clear, warm, dry - Neurologic Neurologic: CNII-XII intact, moves all extremities Results - Labs CBC & Chem 7: 12/29/17 12:38 12/29/17 12:38 Labs: Laboratory Last Values WBC 8.6 K/mm3 (4.5-11.0) 12/29/17 12:38 RBC 4.37 M/mm3 (3.65-5.03) 12/29/17 12:38 Hgb 13.9 gm/dl (10.1-14.3) 12/29/17 12:38 Hct 41.8 % (30.3-42.9) 12/29/17 12:38 MCV 96 fl (79-97) 12/29/17 12:38 MCH 32 pg (28-32) 12/29/17 12:38 MCHC 33 % (30-34) 12/29/17 12:38 RDW 14.1 % (13.2-15.2) 12/29/17 12:38 Plt Count 260 K/mm3 (140-440) 12/29/17 12:38 Lymph % (Auto) 22.0 % (13.4-35.0) 12/29/17 12:38 [place] % (Auto) 7.7 % (0.0-7.3) H 12/29/17 12:38 Eos % (Auto) 0.1 % (0.0-4.3) 12/29/17 12:38 Baso % (Auto) 0.3 % (0.0-1.8) 12/29/17 12:38 Lymph # 1.9 K/mm3 (1.2-5.4) 12/29/17 12:38 [place] # 0.7 K/mm3 (0.0-0.8) 12/29/17 12:38 Eos # 0.0 K/mm3 (0.0-0.4) 12/29/17 12:38 Baso # 0.0 K/mm3 (0.0-0.1) 12/29/17 12:38 Seg Neutrophils % 69.9 % (40.0-70.0) 12/29/17 12:38 Seg Neutrophils # 6.0 K/mm3 (1.8-7.7) 12/29/17 12:38 PT 12.7 Sec. (12.2-14.9) 12/29/17 12:38 INR 0.91 (0.87-1.13) 12/29/17 12:38 APTT 27.5 Sec. (24.2-36.6) 12/29/17 12:38 Sodium 135 mmol/L (137-145) L 12/29/17 12:38 Potassium 4.2 mmol/L (3.6-5.0) 12/29/17 12:38 Chloride 96.3 mmol/L (98-107) L 12/29/17 12:38 Carbon Dioxide 20 mmol/L (22-30) L 12/29/17 12:38 Anion Gap 23 mmol/L 12/29/17 12:38 BUN 7 mg/dL (7-17) 12/29/17 12:38 Creatinine 0.5 mg/dL (0.7-1.2) L 12/29/17 12:38 Estimated GFR > 60 ml/min 12/29/17 12:38 BUN/Creatinine Ratio 14 % 12/29/17 12:38 Glucose 109 mg/dL (65-100) H 12/29/17 12:38 Lactic Acid 1.50 mmol/L (0.7-2.0) 12/29/17 12:38 Calcium 9.5 mg/dL (8.4-10.2) 12/29/17 12:38 Total Bilirubin 0.30 mg/dL (0.1-1.2) 12/29/17 12:38 Direct Bilirubin < 0.2 mg/dL (0-0.2) 12/29/17 12:38 Indirect Bilirubin 0.1 mg/dL 12/29/17 12:38 AST 27 units/L (5-40) 12/29/17 12:38 ALT 16 units/L (7-56) 12/29/17 12:38 Alkaline Phosphatase 113 units/L (35-129) 12/29/17 12:38 Total Protein 7.9 g/dL (6.3-8.2) 12/29/17 12:38 Albumin 4.5 g/dL (3.9-5) 12/29/17 12:38 Albumin/Globulin Ratio 1.3 % 12/29/17 12:38 TSH 1.410 mlU/mL (0.270-4.200) 12/29/17 18:24 Free T4 0.87 ng/dL (0.76-1.46) 12/29/17 18:24 Phenytoin 19.8 ug/mL (10.0-20.0) 12/29/17 13:17 [place] 0.8 mmol/L (0.0-1.2) 12/29/17 13:17
[2017-12-30 15:47] LABS: Bacteria,Urine 1+ /HPF (Negative); Bilirubin,Urine NEG (Negative); Blood,Urine NEG (Negative); Color,Urine Yellow (Yellow); Protein,Urine <15 mg/dL mg/dL (Negative); Urobilinogen,Urine < 2.0 mg/dL (<2.0)
[2017-12-30] MEDS: HABITROL TD SCH (17:50)
[2017-12-30] MEDS: DESYREL PO SCH (22:41)
[2017-12-31] MEDS: NORVASC PO SCH (10:22)
[2017-12-31] MEDS: DILANTIN PO SCH ×2 (10:23→22:04)
[2017-12-31] MEDS: WELLBUTRIN SR PO SCH (10:24)
[2017-12-31] MEDS: EFFEXOR XR PO SCH (10:24)
[2017-12-31] MEDS: VITAMIN C PO SCH (10:24)
[2017-12-31] MEDS: HABITROL TD SCH (10:24)
[2017-12-31] MEDS: ESKALITH PO SCH ×2 (10:24→22:24)
[2017-12-31] MEDS: SODIUM CHLORIDE FLUSH SYRINGE 10 ML IV SCH ×2 (10:25→22:04)
[2017-12-31] MEDS: ZESTRIL PO SCH (10:25)
--- NOTE | 2017-12-31 10:48 | Progress Note ---
Assessment and Plan Assessment and plan: Postconcussive syndrome. CT scan of the head negative. Continue neuro checks. Fall precautions. Seizure disorder. Check lithium and Dilantin level. EEG pending. Neurology consultation. Encephalopathy. Resolved. Bipolar disorder. Continue current medication, psychiatry consulted for reevaluation and medication reconciliation DVT prophylaxis. Continue SCDs. Hypertension. Resume anti-hypertensive medications. Hyperlipidemia. Continue medications. Disposition. Likely discharge in a.m. if okay with neurology. History Interval history: No new issues overnight. Patient does not remember the event that transpired necessitating hospitalization. Patient reports that she was confused this morning. However, alert and oriented 4. Hospitalist Physical - Constitutional Vitals: Temp Pulse Resp BP Pulse Ox 98.6 F 66 16 103/50 97 12/31/17 07:29 12/31/17 10:22 12/31/17 07:29 12/31/17 10:22 12/31/17 07:29 General appearance: Present: no acute distress, cachectic - EENT Eyes: Present: PERRL, EOM intact ENT: hearing intact, clear oral mucosa, dentition normal - Neck Neck: Present: supple, normal ROM - Respiratory Respiratory effort: normal Respiratory: bilateral: CTA - Cardiovascular Rhythm: regular Heart Sounds: Present: S1 & S2. Absent: gallop, rub - Extremities Extremities: no ischemia, No edema, Full ROM - Abdominal General gastrointestinal: soft, non-tender, non-distended, normal bowel sounds - Integumentary Integumentary: Present: clear, warm, dry - Neurologic Neurologic: CNII-XII intact, moves all extremities Results - Labs CBC & Chem 7: 12/29/17 12:38 12/29/17 12:38 Labs: Laboratory Last Values WBC 8.6 K/mm3 (4.5-11.0) 12/29/17 12:38 RBC 4.37 M/mm3 (3.65-5.03) 12/29/17 12:38 Hgb 13.9 gm/dl (10.1-14.3) 12/29/17 12:38 Hct 41.8 % (30.3-42.9) 12/29/17 12:38 MCV 96 fl (79-97) 12/29/17 12:38 MCH 32 pg (28-32) 12/29/17 12:38 MCHC 33 % (30-34) 12/29/17 12:38 RDW 14.1 % (13.2-15.2) 12/29/17 12:38 Plt Count 260 K/mm3 (140-440) 12/29/17 12:38 Lymph % (Auto) 22.0 % (13.4-35.0) 12/29/17 12:38 [place] % (Auto) 7.7 % (0.0-7.3) H 12/29/17 12:38 Eos % (Auto) 0.1 % (0.0-4.3) 12/29/17 12:38 Baso % (Auto) 0.3 % (0.0-1.8) 12/29/17 12:38 Lymph # 1.9 K/mm3 (1.2-5.4) 12/29/17 12:38 [place] # 0.7 K/mm3 (0.0-0.8) 12/29/17 12:38 Eos # 0.0 K/mm3 (0.0-0.4) 12/29/17 12:38 Baso # 0.0 K/mm3 (0.0-0.1) 12/29/17 12:38 Seg Neutrophils % 69.9 % (40.0-70.0) 12/29/17 12:38 Seg Neutrophils # 6.0 K/mm3 (1.8-7.7) 12/29/17 12:38 PT 12.7 Sec. (12.2-14.9) 12/29/17 12:38 INR 0.91 (0.87-1.13) 12/29/17 12:38 APTT 27.5 Sec. (24.2-36.6) 12/29/17 12:38 Sodium 135 mmol/L (137-145) L 12/29/17 12:38 Potassium 4.2 mmol/L (3.6-5.0) 12/29/17 12:38 Chloride 96.3 mmol/L (98-107) L 12/29/17 12:38 Carbon Dioxide 20 mmol/L (22-30) L 12/29/17 12:38 Anion Gap 23 mmol/L 12/29/17 12:38 BUN 7 mg/dL (7-17) 12/29/17 12:38 Creatinine 0.5 mg/dL (0.7-1.2) L 12/29/17 12:38 Estimated GFR > 60 ml/min 12/29/17 12:38 BUN/Creatinine Ratio 14 % 12/29/17 12:38 Glucose 109 mg/dL (65-100) H 12/29/17 12:38 Lactic Acid 1.50 mmol/L (0.7-2.0) 12/29/17 12:38 Calcium 9.5 mg/dL (8.4-10.2) 12/29/17 12:38 Total Bilirubin 0.30 mg/dL (0.1-1.2) 12/29/17 12:38 Direct Bilirubin < 0.2 mg/dL (0-0.2) 12/29/17 12:38 Indirect Bilirubin 0.1 mg/dL 12/29/17 12:38 AST 27 units/L (5-40) 12/29/17 12:38 ALT 16 units/L (7-56) 12/29/17 12:38 Alkaline Phosphatase 113 units/L (35-129) 12/29/17 12:38 Total Protein 7.9 g/dL (6.3-8.2) 12/29/17 12:38 Albumin 4.5 g/dL (3.9-5) 12/29/17 12:38 Albumin/Globulin Ratio 1.3 % 12/29/17 12:38 TSH 1.410 mlU/mL (0.270-4.200) 12/29/17 18:24 Free T4 0.87 ng/dL (0.76-1.46) 12/29/17 18:24 Urine Color Yellow (Yellow) 12/30/17 15:20 Urine Turbidity Clear (Clear) 12/30/17 15:20 Urine pH 7.0 (5.0-7.0) 12/30/17 15:20 Ur Specific [place] 1.010 (1.003-1.030) 12/30/17 15:20 Urine Protein <15 mg/dl mg/dL (Negative) 12/30/17 15:20 Urine Glucose (UA) Neg mg/dL (Negative) 12/30/17 15:20 Urine Ketones Neg mg/dL (Negative) 12/30/17 15:20 Urine Blood Neg (Negative) 12/30/17 15:20 Urine Nitrite Neg (Negative) 12/30/17 15:20 Urine Bilirubin Neg (Negative) 12/30/17 15:20 Urine Urobilinogen < 2.0 mg/dL (<2.0) 12/30/17 15:20 Ur Leukocyte Esterase Neg (Negative) 12/30/17 15:20 Urine WBC (Auto) 1.0 /HPF (0.0-6.0) 12/30/17 15:20 Urine RBC (Auto) 3.0 /HPF (0.0-6.0) 12/30/17 15:20 U Epithel Cells (Auto) 1.0 /HPF (0-13.0) 12/30/17 15:20 Urine Bacteria (Auto) 1+ /HPF (Negative) 12/30/17 15:20 Phenytoin 19.8 ug/mL (10.0-20.0) 12/29/17 13:17 [place] 0.8 mmol/L (0.0-1.2) 12/29/17 13:17
--- NOTE | 2017-12-31 18:59 | Consultation ---
History of Present Illness - Reason for Consult Consult date: 12/31/17 Reason for consult: psychiatric evaluation - Chief Complaint Chief complaint: "I'm trying to figure out what happened in the last month." - History of Present Psychiatric Illness 67 year old female seen on the medical floor for psychiatric evaluation. She reports she has blurred and double vision, frequent falls, and memory loss starting one month ago. She could not remember where she lives or her friend's name. She reports chronic depression and suicidal ideation. She reports not eating well. She states she stays hydrated. She states she is "jealous of people who are dying." She detailed a plan for suicide. She plans to see her PCP "where I can get whatever I want." She states she will rent a hotel room and on the second or third night will slowly overdose on the prescriptions. She states she tried to do this previously but was not successful because "I found out the morphine being extended release is why it didn't work." She has a history of manic and psychosis. She last had auditory hallucinations 5 years ago. She has been hospitalized multiple times in the last 20 years and has had multiple medication trials. She reports all of them were ineffective. She had ECT x 3 sessions but did not want to continue. She has a history of alcohol dependence for many years and quit drinking years ago. She reports taking pain medication for over 30 years but does not have what she wants now. She states she likes klonopin and seroquel but is not getting enough of it in the hospital. She also takes lithium. Medications and Allergies Allergies Allergy/AdvReac Type Severity Reaction Status Date / Time lidocaine Allergy Itching Verified 07/14/17 13:58 hydrochlorothiazide AdvReac Unknown Verified 07/30/15 01:01 Home Medications Medication Instructions Recorded Confirmed Last Taken Type [place] Carbonate [Eskalith] 300 mg PO BID #60 capsule 03/30/16 12/29/17 Rx Ascorbic Acid [Vitamin C with [place] 500 mg PO QDAY 12/29/17 12/29/17 Unknown History Hips] Phenytoin Sodium Extended 300 mg PO BID 12/29/17 12/29/17 Unknown History QUEtiapine [SEROquel] 200 mg PO HS 12/29/17 12/29/17 Unknown History Venlafaxine HCl [Venlafaxin ER] 150 mg PO QAM 12/29/17 12/29/17 Unknown History buPROPion SR [Wellbutrin Sr] 150 mg PO BID 12/29/17 12/29/17 Unknown History clonazePAM [Klonopin] 0.5 mg PO BID 12/29/17 12/29/17 Unknown History traZODone [Desyrel] 50 mg PO QHS 12/29/17 12/29/17 Unknown History Active Meds: Active Medications Acetaminophen (Tylenol) 650 mg PO Q4H PRN PRN Reason: Pain MILD(1-3)/Fever >100.5/WRIGHT Albuterol (Proventil) 2.5 mg IH Q4HRT PRN PRN Reason: Shortness Of Breath Amlodipine Besylate (Norvasc) 5 mg PO DAILY [facility] Last Admin: 12/31/17 10:22 Dose: Not Given Ascorbic Acid (Vitamin C) 500 mg PO QDAY [facility] Last Admin: 12/31/17 10:24 Dose: 500 mg Atorvastatin Calcium (Lipitor) 20 mg PO [facility] Last Admin: 12/30/17 22:41 Dose: 20 mg Clonazepam (Klonopin) 0.5 mg PO BID [facility] Last Admin: 12/31/17 10:24 Dose: 0.5 mg Lisinopril (Zestril) 10 mg PO QDAY [facility] Last Admin: 12/31/17 10:25 Dose: Not Given [place] Carbonate (Eskalith) 300 mg PO BID [facility] Last Admin: 12/31/17 10:24 Dose: 300 mg Nicotine (Habitrol) 14 mg TD QDAY [facility] Last Admin: 12/31/17 10:24 Dose: 14 mg Ondansetron HCl (Zofran) 4 mg IV Q8H PRN PRN Reason: Nausea And Vomiting Phenytoin (Dilantin) 300 mg PO BID [facility] Last Admin: 12/31/17 10:23 Dose: 300 mg Quetiapine Fumarate (Seroquel) 200 mg PO HS [facility] Last Admin: 12/30/17 22:41 Dose: 200 mg Sodium Chloride (Sodium Chloride Flush Syringe 10 Ml) 10 ml IV BID [facility] Last Admin: 12/31/17 10:25 Dose: 10 ml Sodium Chloride (Sodium Chloride Flush Syringe 10 Ml) 10 ml IV PRN PRN PRN Reason: LINE FLUSH Trazodone HCl (Desyrel) 50 mg PO QHS [facility] Last Admin: 12/30/17 22:41 Dose: 50 mg Past psychiatric history - Past Medical History Past Medical History: seizures (on dilantin) Past Surgical History: Other (back surgeries x 2) - past Psychiatric treatment and history Psych: Depression psychiatric treatment history: denies abuse or trauma multiple suicide attempts and hospitalizations - Social History Social history: other (lives with a roommate) Mental Status Exam - Vital signs Last Vital Signs Temp 97.9 F 12/31/17 16:45 Pulse 68 12/31/17 16:45 Resp 18 12/31/17 16:45 BP 135/65 12/31/17 16:45 Pulse Ox 97 12/31/17 16:45 - Exam Narrative exam: She was insulted by attempts to complete a MMSE "I'm not stupid." 3 word recall 12/09 12/09 Orientation: time, place, person Affect: depressed, agitated Mood: congruent with affect Thought content: paranoia Thought Process: Intact Perceptions: none Speech: normal rate and pattern Concentration: focused Motor activity: other (slow) Level of consciousness: alert Memory: Intact (self reports recent memory loss) Sleep Symptoms: Difficulty Falling Asleep Appetite: decreased Interaction: irritable, cooperative Results Result Diagrams: 12/29/17 12:38 12/29/17 12:38 All other labs normal. Assessment and Plan Assessment and plan: Impression: There is concern with the possibility of a comorbid neurological condition. She is currently suicidal ideation with plan bipolar disorder, current episode depressed alcohol use disorder in remission Recommendations: 1013 and transfer to inpatient psychiatric hospital when medically cleared. She was informed of the risks associated with senior care benzodiazepine use, respiratory depression, falls. Continue seroquel 200mg hs for bipolar disorder wellbutrin and effexor discontinued as these can destabilize mood in someone with bipolar disorder. In addition wellbutrin lowers her seizure threshold.
[2017-12-31] MEDS: DESYREL PO SCH (22:04)
[2018-01-01 05:49] LABS: Basophils % (Auto) 0.5 % (0.0-1.8); Eosinophils # (Auto) 0.1 K/mm3 (0.0-0.4); Eosinophils % (Auto) 2.4 % (0.0-4.3); Hemoglobin 11.9 gm/dl (10.1-14.3); Lymphocytes # (Auto) 2.5 K/mm3 (1.2-5.4); Lymphocytes % (Auto) 42.1 % (13.4-35.0); Mean Corpuscular HGB Conc 34 % (30-34); Mean Corpuscular Hemoglobin 32 pg (28-32); Mean Corpuscular Volume 94 fl (79-97); Monocytes # (Auto) 0.7 K/mm3 (0.0-0.8); Monocytes % (Auto) 12.2 % (0.0-7.3); Platelet Count 239 K/mm3 (140-440); Red Blood Count 3.75 M/mm3 (3.65-5.03); Red Cell Distribution Width 14.3 % (13.2-15.2)
[2018-01-01 06:21] LABS: BUN/Creatinine Ratio 30; Blood Urea Nitrogen 12 mg/dL (7-17); Calcium 7.4 mg/dL (8.4-10.2); Hemolysis Index 2
[2018-01-01 06:26] LABS: Hematocrit 36.9 % (30.3-42.9)
--- NOTE | 2018-01-01 08:24 | History and Physical Report ---
History of Present Illness Date of examination: 01/01/18 Date of admission: 12/29/17 15:24 Chief complaint: FOCUSED NEUROLGY CONSULT NOTE CC: I am asked to see this 67 F for AMS, now resolved. HPI: Hx revied in chart and with patient. She was admitted for suicidal ideation, hs prior attempts, Bipolar affective disorder with multiple hosp admits for this, s/p ECT x 3 sessions then quit, HTN, post concussive syndrome with constant mild dizziness, and afraid to walk since falling down the stairs in her house two weeks ago when she banged her head with no LOC. She has a seizure disorder, last seizure over a year ago and is on Dilantin 400mg qhs followed by [facility] physician. She has chronic pain. Now her MS has cleared. no focal sx or sgns. no unilat weakness or numbness. no difficulty with language, swallowing, vision. ROS: an 11 point ROS is negative. FH/SH not re-reviewed MEDS/ALLERGIES: see chart PE: HEENT nl NECK supple without bruits COR: no m or rubs LUNGS: clear to a EXTREM: no edema, no evidence to trauma GAIT not tested due to fall risk NEURO: MS: alert, oriented x 3, speech fluent and clear and without errors, follows commands well and accurately CN II - 12 nl. no nystagmus MOT: nl strength all 4 extrem, no abnormality in tone SENs: in tact to light touch throughout CEREB: fnf nl bilat DTRS: 1+ and symm, prox and dist all 4 extremities, both great toes down going to plantar stim DX IMP: 1. Bipolar Affective Disorder, of many years duration, wit suicidal ideation. 2. Former AMS on admission ? secondary to meds, now resolved 3. Mild post concussive syndrome with residual mild dizziness secondary to a fall two weeks ago, head CT negative for acute abn. 4. Sx disorder of 6 yrs duration, controlled on Dilantin 5. Other dxs as above RECC: 1. I will seek EEG result promptly 2. OK to D/C home from neuro point of view and only if cleared by Psychiatry. 3. continue current meds 4. Call as needed. Anil Barnett MD Past History Past Medical History: seizures (on dilantin) Past Surgical History: Other (back surgeries x 2) Social history: other (lives with a roommate) Family history: no significant family history (reviewed) Medications and Allergies Allergies Allergy/AdvReac Type Severity Reaction Status Date / Time lidocaine Allergy Itching Verified 07/14/17 13:58 hydrochlorothiazide AdvReac Unknown Verified 07/30/15 01:01 Home Medications Medication Instructions Recorded Confirmed Last Taken Type [place] Carbonate [Eskalith] 300 mg PO BID #60 capsule 03/30/16 12/29/17 Rx Ascorbic Acid [Vitamin C with [place] 500 mg PO QDAY 12/29/17 12/29/17 Unknown History Hips] Phenytoin Sodium Extended 300 mg PO BID 12/29/17 12/29/17 Unknown History QUEtiapine [SEROquel] 200 mg PO HS 12/29/17 12/29/17 Unknown History Venlafaxine HCl [Venlafaxin ER] 150 mg PO QAM 12/29/17 12/29/17 Unknown History buPROPion SR [Wellbutrin Sr] 150 mg PO BID 12/29/17 12/29/17 Unknown History clonazePAM [Klonopin] 0.5 mg PO BID 12/29/17 12/29/17 Unknown History traZODone [Desyrel] 50 mg PO QHS 12/29/17 12/29/17 Unknown History Active Meds: Active Medications Acetaminophen (Tylenol) 650 mg PO Q4H PRN PRN Reason: Pain MILD(1-3)/Fever >100.5/WRIGHT Albuterol (Proventil) 2.5 mg IH Q4HRT PRN PRN Reason: Shortness Of Breath Amlodipine Besylate (Norvasc) 5 mg PO DAILY [facility] Last Admin: 12/31/17 10:22 Dose: Not Given Ascorbic Acid (Vitamin C) 500 mg PO QDAY [facility] Last Admin: 12/31/17 10:24 Dose: 500 mg Atorvastatin Calcium (Lipitor) 20 mg PO [facility] Last Admin: 12/31/17 22:04 Dose: 20 mg Clonazepam (Klonopin) 0.5 mg PO BID [facility] Last Admin: 12/31/17 22:03 Dose: 0.5 mg Lisinopril (Zestril) 10 mg PO QDAY [facility] Last Admin: 12/31/17 10:25 Dose: Not Given [place] Carbonate (Eskalith) 300 mg PO BID [facility] Last Admin: 12/31/17 22:24 Dose: 300 mg Nicotine (Habitrol) 14 mg TD QDAY [facility] Last Admin: 12/31/17 10:24 Dose: 14 mg Ondansetron HCl (Zofran) 4 mg IV Q8H PRN PRN Reason: Nausea And Vomiting Phenytoin (Dilantin) 300 mg PO BID [facility] Last Admin: 12/31/17 22:04 Dose: 300 mg Quetiapine Fumarate (Seroquel) 200 mg PO HS [facility] Last Admin: 12/31/17 22:03 Dose: 200 mg Sodium Chloride (Sodium Chloride Flush Syringe 10 Ml) 10 ml IV BID [facility] Last Admin: 12/31/17 22:04 Dose: 10 ml Sodium Chloride (Sodium Chloride Flush Syringe 10 Ml) 10 ml IV PRN PRN PRN Reason: LINE FLUSH Trazodone HCl (Desyrel) 50 mg PO QHS [facility] Last Admin: 12/31/17 22:04 Dose: 50 mg Physical Examination - Vital Signs Vital Signs: Vital Signs Temp Pulse Resp BP Pulse Ox 98.0 F 82 16 153/100 98 12/29/17 08:20 12/29/17 08:20 12/29/17 08:20 12/29/17 08:20 12/29/17 08:20 Results - Laboratory Findings CBC and BMP: 01/01/18 05:30 01/01/18 05:30 Abnormal Lab Findings: Abnormal Labs 12/29/17 12/29/17 01/01/18 12:38 12:38 05:30 Lymph % (Auto) 42.1 H [place] % (Auto) 7.7 H 12.2 H Sodium 135 L Potassium Chloride 96.3 L Carbon Dioxide 20 L Creatinine 0.5 L Glucose 109 H Calcium 01/01/18 05:30 Lymph % (Auto) [place] % (Auto) Sodium Potassium 3.1 L D Chloride 107.2 H Carbon Dioxide Creatinine 0.4 L Glucose Calcium 7.4 L D
[2018-01-01] MEDS: HABITROL TD SCH (09:11)
[2018-01-01] MEDS: DILANTIN PO SCH ×2 (09:12→22:16)
[2018-01-01] MEDS: NORVASC PO SCH (09:13)
[2018-01-01] MEDS: VITAMIN C PO SCH (09:13)
[2018-01-01] MEDS: ESKALITH PO SCH ×2 (09:17→22:19)
--- NOTE | 2018-01-01 11:01 | Progress Note ---
Assessment and Plan Assessment and plan: Suicidal ideation with plan. 1013 and transfer to inpatient psychiatric hospital when medically cleared. Psych following. Postconcussive syndrome. Resolved. CT scan of the head negative. Continue neuro checks. Fall precautions. Seizure disorder. EEG per Neurology reading. Encephalopathy. Resolved. Etiology likely related to medications. Bipolar disorder. Continue current medication, psychiatry consulted for reevaluation and medication reconciliation DVT prophylaxis. Continue SCDs. Hypertension. Resume anti-hypertensive medications. Hyperlipidemia. Continue medications. Disposition. Per psych recommendations History Interval history: No new issues overnight. Patient does not remember the event that transpired necessitating hospitalization. Patient reports that she was confused this morning. However, alert and oriented 4. Hospitalist Physical - Constitutional Vitals: Temp Pulse Resp BP Pulse Ox 98.2 F 72 20 120/66 95 01/01/18 07:49 01/01/18 07:49 01/01/18 07:49 01/01/18 07:49 01/01/18 07:49 General appearance: Present: no acute distress, cachectic - EENT Eyes: Present: PERRL, EOM intact ENT: hearing intact, clear oral mucosa, dentition normal - Neck Neck: Present: supple, normal ROM - Respiratory Respiratory effort: normal Respiratory: bilateral: CTA - Cardiovascular Rhythm: regular Heart Sounds: Present: S1 & S2. Absent: gallop, rub - Extremities Extremities: no ischemia, No edema, Full ROM - Abdominal General gastrointestinal: soft, non-tender, non-distended, normal bowel sounds - Integumentary Integumentary: Present: clear, warm, dry - Neurologic Neurologic: CNII-XII intact, moves all extremities Results - Labs CBC & Chem 7: 01/01/18 05:30 01/01/18 05:30 Labs: Laboratory Last Values WBC 5.9 K/mm3 (4.5-11.0) 01/01/18 05:30 RBC 3.75 M/mm3 (3.65-5.03) 01/01/18 05:30 Hgb 11.9 gm/dl (10.1-14.3) 01/01/18 05:30 Hct 36.9 % (30.3-42.9) 01/01/18 05:30 MCV 94 fl (79-97) 01/01/18 05:30 MCH 32 pg (28-32) 01/01/18 05:30 MCHC 34 % (30-34) 01/01/18 05:30 RDW 14.3 % (13.2-15.2) 01/01/18 05:30 Plt Count 239 K/mm3 (140-440) 01/01/18 05:30 Lymph % (Auto) 42.1 % (13.4-35.0) H 01/01/18 05:30 [place] % (Auto) 12.2 % (0.0-7.3) H 01/01/18 05:30 Eos % (Auto) 2.4 % (0.0-4.3) 01/01/18 05:30 Baso % (Auto) 0.5 % (0.0-1.8) 01/01/18 05:30 Lymph # 2.5 K/mm3 (1.2-5.4) 01/01/18 05:30 [place] # 0.7 K/mm3 (0.0-0.8) 01/01/18 05:30 Eos # 0.1 K/mm3 (0.0-0.4) 01/01/18 05:30 Baso # 0.0 K/mm3 (0.0-0.1) 01/01/18 05:30 Seg Neutrophils % 42.8 % (40.0-70.0) 01/01/18 05:30 Seg Neutrophils # 2.5 K/mm3 (1.8-7.7) 01/01/18 05:30 PT 12.7 Sec. (12.2-14.9) 12/29/17 12:38 INR 0.91 (0.87-1.13) 12/29/17 12:38 APTT 27.5 Sec. (24.2-36.6) 12/29/17 12:38 Sodium 140 mmol/L (137-145) 01/01/18 05:30 Potassium 3.1 mmol/L (3.6-5.0) L D 01/01/18 05:30 Chloride 107.2 mmol/L (98-107) H 01/01/18 05:30 Carbon Dioxide 22 mmol/L (22-30) 01/01/18 05:30 Anion Gap 14 mmol/L 01/01/18 05:30 BUN 12 mg/dL (7-17) 01/01/18 05:30 Creatinine 0.4 mg/dL (0.7-1.2) L 01/01/18 05:30 Estimated GFR > 60 ml/min 01/01/18 05:30 BUN/Creatinine Ratio 30 % 01/01/18 05:30 Glucose 100 mg/dL (65-100) 01/01/18 05:30 Lactic Acid 1.50 mmol/L (0.7-2.0) 12/29/17 12:38 Calcium 7.4 mg/dL (8.4-10.2) L D 01/01/18 05:30 Total Bilirubin 0.30 mg/dL (0.1-1.2) 12/29/17 12:38 Direct Bilirubin < 0.2 mg/dL (0-0.2) 12/29/17 12:38 Indirect Bilirubin 0.1 mg/dL 12/29/17 12:38 AST 27 units/L (5-40) 12/29/17 12:38 ALT 16 units/L (7-56) 12/29/17 12:38 Alkaline Phosphatase 113 units/L (35-129) 12/29/17 12:38 Total Protein 7.9 g/dL (6.3-8.2) 12/29/17 12:38 Albumin 4.5 g/dL (3.9-5) 12/29/17 12:38 Albumin/Globulin Ratio 1.3 % 12/29/17 12:38 TSH 1.410 mlU/mL (0.270-4.200) 12/29/17 18:24 Free T4 0.87 ng/dL (0.76-1.46) 12/29/17 18:24 Urine Color Yellow (Yellow) 12/30/17 15:20 Urine Turbidity Clear (Clear) 12/30/17 15:20 Urine pH 7.0 (5.0-7.0) 12/30/17 15:20 Ur Specific [place] 1.010 (1.003-1.030) 12/30/17 15:20 Urine Protein <15 mg/dl mg/dL (Negative) 12/30/17 15:20 Urine Glucose (UA) Neg mg/dL (Negative) 12/30/17 15:20 Urine Ketones Neg mg/dL (Negative) 12/30/17 15:20 Urine Blood Neg (Negative) 12/30/17 15:20 Urine Nitrite Neg (Negative) 12/30/17 15:20 Urine Bilirubin Neg (Negative) 12/30/17 15:20 Urine Urobilinogen < 2.0 mg/dL (<2.0) 12/30/17 15:20 Ur Leukocyte Esterase Neg (Negative) 12/30/17 15:20 Urine WBC (Auto) 1.0 /HPF (0.0-6.0) 12/30/17 15:20 Urine RBC (Auto) 3.0 /HPF (0.0-6.0) 12/30/17 15:20 U Epithel Cells (Auto) 1.0 /HPF (0-13.0) 12/30/17 15:20 Urine Bacteria (Auto) 1+ /HPF (Negative) 12/30/17 15:20 Phenytoin 19.8 ug/mL (10.0-20.0) 12/29/17 13:17 [place] 0.8 mmol/L (0.0-1.2) 12/29/17 13:17
--- NOTE | 2018-01-01 11:55 | Progress Note ---
Subjective - Reason for Consult Consult date: 01/01/18 Reason for consult: Psychiatry Follow-up - Chief Complaint Chief complaint: "I want to " 67 year old female seen on the medical floor for psychiatric evaluation. She reports she has blurred and double vision, frequent falls, and memory loss starting one month ago. She could not remember where she lives or her friend's name. She reports chronic depression and suicidal ideation. Today the patient is calm and cooperative during the assessment. She still endorses SI 's with a plan to overdose. She stated a previous suicide attempt in the past. She stated that she do not deserve to live since her mother, father, and a sibling have over the past couple years. She denies HI's and AVH's. She denies any side effects of her medication. Mental Status Exam - Vital signs Last Vital Signs Temp 98.2 F 01/01/18 07:49 Pulse 72 01/01/18 07:49 Resp 20 01/01/18 07:49 BP 120/66 01/01/18 07:49 Pulse Ox 95 01/01/18 07:49 - Exam Narrative exam: MSE: Appearance: calm, cooperative Behavior: regular eye contact Speech: regular rate and tone Mood: withdrawn, sad Affect: congruent to mood Thought Process: circumstantial Thought Content: denies HI's and AVH's Motor Activity: sitting up in bed Cognition: A/O x3 Insight: variable Judgment: poor Assessment and Plan Impression: Bipolar DO, current episode depressed. 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 Today the patient is calm and cooperative during the assessment. The patient endorses SI's with a plan to overdose. Medical: Hx of Seizure Recommendations/Plan: Continue 1013 with pending placement to [facility]. Continue Seroquel 200 mg PO HS for mood. She was informed of the risks associated with group home benzodiazepine use, respiratory depression, falls. Wellbutrin and Effexor discontinued as these can destabilize mood in someone with bipolar disorder. In addition wellbutrin lowers her seizure threshold. Discussed possible metabolic side effects of Seroquel with the patient. Neuro signed off patient.
[2018-01-01] MEDS: ZESTRIL PO SCH (12:08)
[2018-01-01] MEDS: SODIUM CHLORIDE FLUSH SYRINGE 10 ML IV SCH ×2 (12:08→22:21)
[2018-01-01] MEDS: DESYREL PO SCH (22:15)
[2018-01-02 08:39] VITALS: BP 121/61
--- NOTE | 2018-01-02 10:42 | Progress Note ---
Subjective Date of service: 01/02/18 Principal diagnosis: seizure disorder Interval history: NEURO PROGRESS NOTE Interim notes reviewed. EEG: showed normal awake background with 9-11 Hz alpha activity. No differentiated states of arousal are identified. Photic stimulation evokes no abn. IMP: Normal awake EEG. There is specifically no focal, lateralizing, or epileptiform abnormality. Neuro work up complete. Call as needed. Anil Barnett MD Objective - Vital Sign Vital Signs - 12hr 01/01/18 01/02/18 23:25 08:29 Temperature 98.4 F 98.7 F Pulse Rate 80 72 Respiratory 18 18 Rate Blood Pressure 123/58 121/61 O2 Sat by Pulse 97 96 Oximetry - Laboratory Findings CBC and BMP: 01/01/18 05:30 01/01/18 05:30 Abnormal Lab Findings: Abnormal Labs 12/29/17 12/29/17 01/01/18 12:38 12:38 05:30 Lymph % (Auto) 42.1 H [place] % (Auto) 7.7 H 12.2 H Sodium 135 L Potassium Chloride 96.3 L Carbon Dioxide 20 L Creatinine 0.5 L Glucose 109 H Calcium 01/01/18 05:30 Lymph % (Auto) [place] % (Auto) Sodium Potassium 3.1 L D Chloride 107.2 H Carbon Dioxide Creatinine 0.4 L Glucose Calcium 7.4 L D
--- NOTE | 2018-01-02 10:46 | Progress Note ---
Assessment and Plan Assessment and plan: Suicidal ideation with plan. 1013 and transfer to inpatient psychiatric hospital when bed available. Psych following. Postconcussive syndrome. Resolved. CT scan of the head negative. Continue neuro checks. Fall precautions. Seizure disorder. EEG normal per Neurology. Encephalopathy. Resolved. Etiology likely related to medications. Bipolar disorder. Continue current medication, psychiatry consulted for reevaluation and medication reconciliation DVT prophylaxis. Continue SCDs. Hypertension. Resume anti-hypertensive medications. Hyperlipidemia. Continue medications. Disposition. Per psych recommendations History Interval history: No new issues overnight. Patient does not remember the event that transpired necessitating hospitalization. Patient reports that she was confused this morning. However, alert and oriented 4. Hospitalist Physical - Constitutional Vitals: Temp Pulse Resp BP Pulse Ox 98.7 F 72 18 121/61 96 01/02/18 08:29 01/02/18 08:29 01/02/18 08:29 01/02/18 08:29 01/02/18 08:29 General appearance: Present: no acute distress, cachectic - EENT Eyes: Present: PERRL, EOM intact ENT: hearing intact, clear oral mucosa, dentition normal - Neck Neck: Present: supple, normal ROM - Respiratory Respiratory effort: normal Respiratory: bilateral: CTA - Cardiovascular Rhythm: regular Heart Sounds: Present: S1 & S2. Absent: gallop, rub - Extremities Extremities: no ischemia, No edema, Full ROM - Abdominal General gastrointestinal: soft, non-tender, non-distended, normal bowel sounds - Integumentary Integumentary: Present: clear, warm, dry - Neurologic Neurologic: CNII-XII intact, moves all extremities Results - Labs CBC & Chem 7: 01/01/18 05:30 01/01/18 05:30 Labs: Laboratory Last Values WBC 5.9 K/mm3 (4.5-11.0) 01/01/18 05:30 RBC 3.75 M/mm3 (3.65-5.03) 01/01/18 05:30 Hgb 11.9 gm/dl (10.1-14.3) 01/01/18 05:30 Hct 36.9 % (30.3-42.9) 01/01/18 05:30 MCV 94 fl (79-97) 01/01/18 05:30 MCH 32 pg (28-32) 01/01/18 05:30 MCHC 34 % (30-34) 01/01/18 05:30 RDW 14.3 % (13.2-15.2) 01/01/18 05:30 Plt Count 239 K/mm3 (140-440) 01/01/18 05:30 Lymph % (Auto) 42.1 % (13.4-35.0) H 01/01/18 05:30 [place] % (Auto) 12.2 % (0.0-7.3) H 01/01/18 05:30 Eos % (Auto) 2.4 % (0.0-4.3) 01/01/18 05:30 Baso % (Auto) 0.5 % (0.0-1.8) 01/01/18 05:30 Lymph # 2.5 K/mm3 (1.2-5.4) 01/01/18 05:30 [place] # 0.7 K/mm3 (0.0-0.8) 01/01/18 05:30 Eos # 0.1 K/mm3 (0.0-0.4) 01/01/18 05:30 Baso # 0.0 K/mm3 (0.0-0.1) 01/01/18 05:30 Seg Neutrophils % 42.8 % (40.0-70.0) 01/01/18 05:30 Seg Neutrophils # 2.5 K/mm3 (1.8-7.7) 01/01/18 05:30 PT 12.7 Sec. (12.2-14.9) 12/29/17 12:38 INR 0.91 (0.87-1.13) 12/29/17 12:38 APTT 27.5 Sec. (24.2-36.6) 12/29/17 12:38 Sodium 140 mmol/L (137-145) 01/01/18 05:30 Potassium 3.1 mmol/L (3.6-5.0) L D 01/01/18 05:30 Chloride 107.2 mmol/L (98-107) H 01/01/18 05:30 Carbon Dioxide 22 mmol/L (22-30) 01/01/18 05:30 Anion Gap 14 mmol/L 01/01/18 05:30 BUN 12 mg/dL (7-17) 01/01/18 05:30 Creatinine 0.4 mg/dL (0.7-1.2) L 01/01/18 05:30 Estimated GFR > 60 ml/min 01/01/18 05:30 BUN/Creatinine Ratio 30 % 01/01/18 05:30 Glucose 100 mg/dL (65-100) 01/01/18 05:30 Lactic Acid 1.50 mmol/L (0.7-2.0) 12/29/17 12:38 Calcium 7.4 mg/dL (8.4-10.2) L D 01/01/18 05:30 Total Bilirubin 0.30 mg/dL (0.1-1.2) 12/29/17 12:38 Direct Bilirubin < 0.2 mg/dL (0-0.2) 12/29/17 12:38 Indirect Bilirubin 0.1 mg/dL 12/29/17 12:38 AST 27 units/L (5-40) 12/29/17 12:38 ALT 16 units/L (7-56) 12/29/17 12:38 Alkaline Phosphatase 113 units/L (35-129) 12/29/17 12:38 Total Protein 7.9 g/dL (6.3-8.2) 12/29/17 12:38 Albumin 4.5 g/dL (3.9-5) 12/29/17 12:38 Albumin/Globulin Ratio 1.3 % 12/29/17 12:38 TSH 1.410 mlU/mL (0.270-4.200) 12/29/17 18:24 Free T4 0.87 ng/dL (0.76-1.46) 12/29/17 18:24 Urine Color Yellow (Yellow) 12/30/17 15:20 Urine Turbidity Clear (Clear) 12/30/17 15:20 Urine pH 7.0 (5.0-7.0) 12/30/17 15:20 Ur Specific [place] 1.010 (1.003-1.030) 12/30/17 15:20 Urine Protein <15 mg/dl mg/dL (Negative) 12/30/17 15:20 Urine Glucose (UA) Neg mg/dL (Negative) 12/30/17 15:20 Urine Ketones Neg mg/dL (Negative) 12/30/17 15:20 Urine Blood Neg (Negative) 12/30/17 15:20 Urine Nitrite Neg (Negative) 12/30/17 15:20 Urine Bilirubin Neg (Negative) 12/30/17 15:20 Urine Urobilinogen < 2.0 mg/dL (<2.0) 12/30/17 15:20 Ur Leukocyte Esterase Neg (Negative) 12/30/17 15:20 Urine WBC (Auto) 1.0 /HPF (0.0-6.0) 12/30/17 15:20 Urine RBC (Auto) 3.0 /HPF (0.0-6.0) 12/30/17 15:20 U Epithel Cells (Auto) 1.0 /HPF (0-13.0) 12/30/17 15:20 Urine Bacteria (Auto) 1+ /HPF (Negative) 12/30/17 15:20 Phenytoin 19.8 ug/mL (10.0-20.0) 12/29/17 13:17 [place] 0.8 mmol/L (0.0-1.2) 12/29/17 13:17
--- NOTE | 2018-01-02 10:47 | Progress Note ---
Subjective - Reason for Consult Consult date: 01/02/18 Reason for consult: Psychiatry Follow-up - Chief Complaint Chief complaint: "I still feel the same" 67 year old female seen on the medical floor for psychiatric evaluation. She reports she has blurred and double vision, frequent falls, and memory loss starting one month ago. She could not remember where she lives or her friend's name. She reports chronic depression and suicidal ideation. Today the patient is calm and cooperative during the assessment. She still endorses SI 's with a plan to overdose. She stated, "I still feel the same as I did yesterday." She denies HI's and AVH's. She denies any side effects of her medications. Mental Status Exam - Vital signs Last Vital Signs Temp 98.7 F 01/02/18 08:29 Pulse 72 01/02/18 08:29 Resp 18 01/02/18 08:29 BP 121/61 01/02/18 08:29 Pulse Ox 96 01/02/18 08:29 - Exam Narrative exam: MSE: Appearance: calm, cooperative Behavior: regular eye contact Speech: regular rate and tone Mood: withdrawn, sad Affect: congruent to mood Thought Process: circumstantial Thought Content: denies HI's and AVH's Motor Activity: sitting up in bed Cognition: A/O x3 Insight: variable Judgment: poor Assessment and Plan Impression: Bipolar DO, current episode depressed. 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 Today the patient is calm and cooperative during the assessment. The patient endorses SI's with a plan to overdose. Medical: Hx of Seizure Recommendations/Plan: Continue 1013 placment to inpatient psy services. Continue Seroquel 200 mg PO HS for mood and [place] 300 mg PO BID for mood. 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 Discussed possible metabolic side effects of Seroquel with the patient. Neuro signed off patient.
--- NOTE | 2018-01-02 11:22 | Discharge Summary ---
Providers - Providers Date of Admission: 12/29/17 15:24 Date of discharge: 01/02/18 Attending physician: MERY ROSA 12/29/17 20:35 psychiatry consult [Consult to Mental Health] [CONS] Routine Reason For Exam: depression, medication reconciliation Place consult to:: psych Notified:: Phone number called:: [phone] Was contact made?: Yes If yes, spoke with:: lacy Time called:: 07:58 12/31/17 10:57 Physical Therapy Evaluation and Treat [CONS] Routine Comment: Reason For Exam: deconditioning, fall 01/01/18 07:00 Consult to Physician [CONS] Routine Comment: Consulting Provider: CHAPO FORD Physician Instructions: Reason For Exam: encephalopathy Hospitalization Reason for admission: ams Condition: Stable Hospital course: 67 YO Female with HTN, Seizure Disorder, Depression, Bipolar Disorder, HLD presents to ED for altered mentation. Patient reportedly stated that she fell down the stairs at home and hit her head about 2 or 3 days prior to admission. Patient also reported presyncope prior to admission. Pt seen and evaluated in ED and found to have evidence of Post Concussive Syndrome as well as Encephalopathy. Pt admitted to medical floor. CT scan of the head was found to be negative. The patient reported chronic depression and suicidal ideation. Patient was seen by neurology and psychiatry for further evaluation. Neurology felt that her altered mentation with most likely secondary to her medications versus post ictal state from known seizure disorder. Patient had no seizure activity during hospitalization. Recommendations were for EEG which was completed and found to be normal. Psychiatry felt that patient exhibited uncontrolled bipolar disorder with current episode of depression with suicidal ideations. Patient was placed on 1013 and placement to [facility] was arranged. Continue Seroquel 200 mg PO HS for mood. 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 Wellbutrin and Effexor discontinued as these can destabilize mood in someone with bipolar disorder. In addition wellbutrin lowers her seizure threshold. Discussed possible metabolic side effects of Seroquel with the patient. Dedicated discharge time 32 minutes. Disposition: DC/TX-65 PSY HOSP/PSY UNIT Time spent for discharge: 32 - Discharge Diagnoses (1) Post concussion syndrome Status: Acute (2) Psychiatric disorder Status: Acute (3) Seizure disorder Status: Acute (4) Bipolar disorder Status: Acute Qualifiers: Active/Remission status: currently active Current bipolar episode type: depressed Current episode severity: moderate Qualified Code(s): F31.32 - Bipolar disorder, current episode depressed, moderate (5) Bipolar affect, depressed Status: Chronic (6) Hypertension Status: Chronic Core Measure Documentation - Palliative Care Palliative Care/ Comfort Measures: Not Applicable - Core Measures Any of the following diagnoses?: none Exam - Constitutional Vitals: Temp Pulse Resp BP Pulse Ox 98.7 F 72 18 121/61 96 01/02/18 08:29 01/02/18 08:29 01/02/18 08:29 01/02/18 08:29 01/02/18 08:29 General appearance: Present: no acute distress, well-nourished - EENT Eyes: Present: PERRL ENT: hearing intact, clear oral mucosa - Neck Neck: Present: supple, normal ROM - Respiratory Respiratory effort: normal Respiratory: bilateral: CTA - Cardiovascular Heart Sounds: Present: S1 & S2. Absent: rub, click - Extremities Extremities: pulses symmetrical, No edema Peripheral Pulses: within normal limits - Abdominal General gastrointestinal: Present: soft, non-tender, non-distended, normal bowel sounds Female genitourinary: Present: normal - Integumentary Integumentary: Present: clear, warm, dry - Musculoskeletal Musculoskeletal: gait normal, strength equal bilaterally - Psychiatric Psychiatric: appropriate mood/affect, intact judgment & insight - Neurologic Neurologic: CNII-XII intact, moves all extremities Plan Activity: no restrictions Weight Bearing Status: Full Weight Bearing Diet: regular Follow up with: KIM LARSON [Other] - 3-5 Days CHAPO FORD MD [Staff Physician] - 7 Days
[2018-01-02] MEDS: HABITROL TD SCH (11:33)
[2018-01-02] MEDS: NORVASC PO SCH (11:33)
[2018-01-02] MEDS: VITAMIN C PO SCH (11:33)
[2018-01-02] MEDS: DILANTIN PO SCH (11:35)
[2018-01-02] MEDS: ZESTRIL PO SCH (11:36)
[2018-01-02] MEDS: ESKALITH PO SCH (11:37)
[2018-01-02] MEDS ORDERED: FLUSH HEPARIN IV ONE (12:19)
[2018-01-02] MEDS ORDERED: TRIPLE ANTIBIOTIC TP ONE (12:20)
== END 2018-01-02 14:30 | DRG 100 ==
LOC: ED 08:01 → 3A 15:24
PROVIDERS: ADMIT Internal Medicine; ATTEND Hospitalist
DX: G40.909 Epilepsy, unspecified, not intractable, without status epilepticus (principal); G92 Toxic encephalopathy; I45.2 Bifascicular block; R45.851 Suicidal ideations; F31.9 Bipolar disorder, unspecified; I10 Essential (primary) hypertension; Z88.8 Allergy status to other drugs, medicaments and biological substances; Z79.899 Other long term (current) drug therapy; E78.00 Pure hypercholesterolemia, unspecified; Z90.49 Acquired absence of other specified parts of digestive tract; E86.0 Dehydration; F99 Mental disorder, not otherwise specified; E78.5 Hyperlipidemia, unspecified; F07.81 Postconcussional syndrome; F10.11 Alcohol abuse, in remission; Y90.9 Presence of alcohol in blood, level not specified; W10.9XXA Fall (on) (from) unspecified stairs and steps, initial encounter; Y93.89 Activity, other specified; Y92.89 Other specified places as the place of occurrence of the external cause; Y99.8 Other external cause status; T50.995A Adverse effect of other drugs, medicaments and biological substances, initial encounter; T43.595A Adverse effect of other antipsychotics and neuroleptics, initial encounter; Y92.9 Unspecified place or not applicable
CPT/HCPCS: 36415; 70450; 80048; 80074; 80178; 80185; 81001; 82140; 84439; 84443; 85025; 85610; 85730; 93005; 93010; 95819; A6250; A9270-GY; G8978-GP; G8979-GP; G8980-GP; J1642; J7030

== ENCOUNTER 2018-01-08 16:50 | Emergency (ER) | payer MEDICARE ==
[2018-01-08 17:37] VITALS: BP 123/61
--- NOTE | 2018-01-08 20:27 | Emergency Department Report ---
ED General Adult HPI - General Chief complaint: Medical Clearance Stated complaint: CARE OF PORT Time Seen by Provider: 01/08/18 17:49 Source: EMS Mode of arrival: Stretcher Limitations: No Limitations, Other - History of Present Illness Initial comments: 67-year-old female presents for [facility] requesting heparin flush of her port. Patient is not clear as to what needs to be done with her port. She has a port placement that she is a difficult stick. She expresses that required a blood draw and she refused peripheral blood draw and preferred for her port to be accessed. I had the RN call the psychiatric facility and apparently patient was demanding that her port needed to be flushed with heparin and they did not need any blood draw. No other complaints reported. Patient is at [facility] on a 1013 and there is a sitter at the bedside - Related Data Home Medications Medication Instructions Recorded Confirmed Last Taken Ascorbic Acid [Vitamin C with Leonie 500 mg PO QDAY 12/29/17 12/29/17 Unknown Hips] Phenytoin Sodium Extended 300 mg PO BID 12/29/17 12/29/17 Unknown clonazePAM [Klonopin] 0.5 mg PO BID 12/29/17 12/29/17 Unknown traZODone [Desyrel] 50 mg PO QHS 12/29/17 12/29/17 Unknown Previous Rx's Medication Instructions Recorded Last Taken Type [place] Carbonate [Eskalith] 300 mg PO BID #60 capsule 03/30/16 12/29/17 Rx AtorvaSTATin [Lipitor] 20 mg PO HS tablet 01/02/18 Unknown Rx Lisinopril [Zestril TAB] 10 mg PO QDAY tablet 01/02/18 Unknown Rx Nicotine [Habitrol] 14 mg TD QDAY patch 01/02/18 Unknown Rx QUEtiapine [SEROquel] 200 mg PO HS tablet 01/02/18 Unknown Rx amLODIPine [Norvasc] 5 mg PO DAILY tablet 01/02/18 Unknown Rx Allergies Allergy/AdvReac Type Severity Reaction Status Date / Time lidocaine Allergy Itching Verified 07/14/17 13:58 hydrochlorothiazide AdvReac Unknown Verified 07/30/15 01:01 ED Review of Systems ROS: Stated complaint: CARE OF PORT Other details as noted in HPI Comment: All other systems reviewed and negative ED Past Medical Hx - Past Medical History Hx Hypertension: Yes Hx Diabetes: No Hx Seizures: Yes Hx Psychiatric Treatment: Yes (depression, staying @ [facility], Bipolar , manic depression) Additional medical history: HIGH CHOLESTEROL, Back surgery x 2, DJD, Neuropathy , Colon surgery - Surgical History Hx Cholecystectomy: Yes Hx Appendectomy: Yes Additional Surgical History: back surgery x 2. colon surgery - Social History Smoking Status: Current Every Day Smoker - Medications Home Medications: Home Medications Medication Instructions Recorded Confirmed Last Taken Type [place] Carbonate [Eskalith] 300 mg PO BID #60 capsule 03/30/16 12/29/17 Rx Ascorbic Acid [Vitamin C with Leonie 500 mg PO QDAY 12/29/17 12/29/17 Unknown History Hips] Phenytoin Sodium Extended 300 mg PO BID 12/29/17 12/29/17 Unknown History clonazePAM [Klonopin] 0.5 mg PO BID 12/29/17 12/29/17 Unknown History traZODone [Desyrel] 50 mg PO QHS 12/29/17 12/29/17 Unknown History AtorvaSTATin [Lipitor] 20 mg PO HS tablet 01/02/18 Unknown Rx Lisinopril [Zestril TAB] 10 mg PO QDAY tablet 01/02/18 Unknown Rx Nicotine [Habitrol] 14 mg TD QDAY patch 01/02/18 Unknown Rx QUEtiapine [SEROquel] 200 mg PO HS tablet 01/02/18 Unknown Rx amLODIPine [Norvasc] 5 mg PO DAILY tablet 01/02/18 Unknown Rx ED Physical Exam - General Limitations: Other - Other Other exam information: General: No limitations, patient is alert in no acute distress Head exam: Atraumatic, normocephalic Eyes exam: Normal appearance ENT: Moist mucous membrane, normal oropharynx Neck exam: Normal inspection, full range of motion Respiratory exam: Clear to auscultation bilateral, no wheezes, rales, crackles Cardiovascular: Normal rate and rhythm. Port to her right chest wall without signs of erythema or warmth Abdomen: Soft, nondistended, and nontender, with normal bowel sounds, no rebound, or guarding Extremity: Full range of motion normal inspection no deformity Back: Normal Inspection, full range of motion, no tenderness Neurologic: Alert, oriented x3, cranial nerves intact, no motor or sensory deficit Psychiatric: normal affect, normal mood Skin: Warm, dry, intact ED Course Vital Signs 01/08/18 01/08/18 17:31 17:38 Temperature 98.5 F Pulse Rate 66 Respiratory 16 18 Rate Blood Pressure 123/61 O2 Sat by Pulse 97 Oximetry ED Medical Decision Making - Medical Decision Making Patient will be discharged back to [facility] since they do not require blood draw. We explained to [facility] and the patient that her port doesn't require regular flushing and it is flushed after it is accessed only - Differential Diagnosis port assessment Critical Care Time: No Critical care attestation.: If time is entered above; I have spent that time in minutes in the direct care of this critically ill patient, excluding procedure time. ED Disposition Clinical Impression: Bipolar disorder Disposition: DC/TX-65 PSY HOSP/PSY UNIT Is pt being admited?: No Does the pt Need Aspirin: No Condition: Stable Time of Disposition: 20:27 (d/c back to [facility])
== END 2018-01-08 22:41 ==
LOC: ED 16:50
DX: F31.9 Bipolar disorder, unspecified (principal); I10 Essential (primary) hypertension; E78.00 Pure hypercholesterolemia, unspecified; F17.200 Nicotine dependence, unspecified, uncomplicated; Z88.8 Allergy status to other drugs, medicaments and biological substances
CPT/HCPCS: 99283

== ENCOUNTER 2018-01-27 14:29 | Emergency (ER) | payer MEDICARE ==
[2018-01-27 15:16] LABS: Bilirubin,Urine NEG (Negative); Blood,Urine SM (Negative); Color,Urine Yellow (Yellow); Mucus,Urine FEW /HPF; Protein,Urine <15 mg/dL mg/dL (Negative); Urobilinogen,Urine < 2.0 mg/dL (<2.0)
[2018-01-27 15:23] LABS: Amphetamine Screen,Urine PRESUMPTIVE NEGATIVE; Benzodiazepines Screen,Urine PRESUMPTIVE NEGATIVE; Cannabinoid Screen,Urine PRESUMPTIVE NEGATIVE; Cocaine Screen,Urine PRESUMPTIVE NEGATIVE; Methadone Screen,Urine PRESUMPTIVE NEGATIVE; Opiate Screen,Urine PRESUMPTIVE NEGATIVE
--- NOTE | 2018-01-28 00:01 | Emergency Department Report ---
ED Psych HPI - General Chief Complaint: Psych Stated Complaint: NECK/PAIN Time Seen by Provider: 01/27/18 23:36 Source: patient Mode of arrival: Ambulatory - History of Present Illness Initial Comments: 67-year-old woman with past history of bipolar depressive disorder with prior episodes of suicide attempts, most recently July 2017, presents with recurrent suicidal ideation. Patient says that she is chronically depressed, that she thinks about suicide constantly, and that if she were to do it again, that she would repeat an ingestion of one of her routine medications. She is chronically depressed, and there is no particular change in her overall sense of psychiatric mood, but that she is always thinking about suicide in general, and that when she is reportedly feeling better, that she is usually sent which she believes that her are givers want her to say She has not done made any active suicide attempts today or over the past couple of days, as she lives in a care facility, and her medications are provided to her every day. She's not had any intercurrent illness, but she does have recurrent bouts of vertigo, and was evaluated for this at a previous visit approximately a month ago, after she had sustained a fall from generalized unsteadiness, and after psychiatric and neurologic evaluation was generally negative, but was felt that her symptoms were more likely a complication from her routine medications. She has known seizure disorder, reports that she takes phenytoin, but she has not had supratherapeutic levels of this recently. She reports that antidepressants do not help, and she has tried several rounds of electroconvulsive therapy, but only completed 3, but she reports that this has caused memory loss. Her psychiatrist wanted a total of 10, and she was taken treatments 3 times weekly, and the last was a couple of weeks ago. She has chronic neck pain, and has pain at this time, without any focal neurologic symptoms, and she is also generally unsteady, with poor balance, as a result of flaring of her vertigo over the past couple of days. MD Complaint: suicidal ideation -: year(s) Associated Psychiatric Symptoms: depression, suicidal ideation History of same: Yes Quality: constant Worsens With: none - Related Data Home Medications Medication Instructions Recorded Confirmed Last Taken Phenytoin Sodium Extended 300 mg PO BID 12/29/17 12/29/17 Unknown clonazePAM [Klonopin] 0.5 mg PO BID 12/29/17 12/29/17 Unknown traZODone [Desyrel] 50 mg PO QHS 12/29/17 12/29/17 Unknown Gabapentin [Neurontin] 300 mg PO Q8HR 01/28/18 01/28/18 Unknown Multivitamin Tab [Multiple Vitamin 1 each PO QDAY 01/28/18 01/28/18 Unknown TAB (Theragran)] Previous Rx's Medication Instructions Recorded Last Taken Type AtorvaSTATin [Lipitor] 20 mg PO HS tablet 01/02/18 Unknown Rx Lisinopril [Zestril TAB] 10 mg PO QDAY tablet 01/02/18 Unknown Rx Nicotine [Habitrol] 14 mg TD QDAY patch 01/02/18 Unknown Rx QUEtiapine [SEROquel] 200 mg PO HS tablet 01/02/18 Unknown Rx amLODIPine [Norvasc] 5 mg PO DAILY tablet 01/02/18 Unknown Rx Allergies Allergy/AdvReac Type Severity Reaction Status Date / Time lidocaine Allergy Itching Verified 07/14/17 13:58 hydrochlorothiazide AdvReac Unknown Verified 07/30/15 01:01 ED Review of Systems ROS: Stated complaint: NECK/PAIN Other details as noted in HPI ED Past Medical Hx - Past Medical History Hx Hypertension: Yes Hx Diabetes: No Hx Seizures: Yes Hx Psychiatric Treatment: Yes (depression, staying @ [facility], Bipolar , manic depression) Additional medical history: HIGH CHOLESTEROL, Back surgery x 2, DJD, Neuropathy , Colon surgery - Surgical History Hx Cholecystectomy: Yes Hx Appendectomy: Yes Additional Surgical History: back surgery x 2. colon surgery - Social History Smoking Status: Current Every Day Smoker Substance Use Type: None - Medications Home Medications: Home Medications Medication Instructions Recorded Confirmed Last Taken Type Phenytoin Sodium Extended 300 mg PO BID 12/29/17 12/29/17 Unknown History clonazePAM [Klonopin] 0.5 mg PO BID 12/29/17 12/29/17 Unknown History traZODone [Desyrel] 50 mg PO QHS 12/29/17 12/29/17 Unknown History AtorvaSTATin [Lipitor] 20 mg PO HS tablet 01/02/18 Unknown Rx Lisinopril [Zestril TAB] 10 mg PO QDAY tablet 01/02/18 Unknown Rx Nicotine [Habitrol] 14 mg TD QDAY patch 01/02/18 Unknown Rx QUEtiapine [SEROquel] 200 mg PO HS tablet 01/02/18 Unknown Rx amLODIPine [Norvasc] 5 mg PO DAILY tablet 01/02/18 Unknown Rx Gabapentin [Neurontin] 300 mg PO Q8HR 01/28/18 01/28/18 Unknown History Multivitamin Tab [Multiple Vitamin 1 each PO QDAY 01/28/18 01/28/18 Unknown History TAB (Theragran)] ED Physical Exam - General Limitations: No Limitations General appearance: alert, in no apparent distress - Head Head exam: Present: atraumatic, normocephalic - Eye Eye exam: Present: normal appearance, PERRL - ENT ENT exam: Present: normal exam - Neck Neck exam: Present: normal inspection. Absent: tenderness - Respiratory Respiratory exam: Present: wheezes (faint, rare, scattered). Absent: respiratory distress, rales, rhonchi, chest wall tenderness, accessory muscle use - Cardiovascular Cardiovascular Exam: Present: regular rate - GI/Abdominal GI/Abdominal exam: Present: soft. Absent: tenderness, guarding, rebound - Neurological Exam Neurological exam: Present: alert, oriented X3, CN II-XII intact, other (mild gait imbalance, general unsteadiness, no tremor). Absent: motor sensory deficit - Psychiatric Psychiatric exam: Present: normal affect, normal mood. Absent: depressed - Skin Skin exam: Present: warm, dry ED Course Vital Signs 01/27/18 01/28/18 01/28/18 14:37 00:31 00:32 Temperature 97.9 F 97.7 F Pulse Rate 80 80 Respiratory 16 20 20 Rate Blood Pressure 151/67 Blood Pressure 171/80 [Right] O2 Sat by Pulse 99 100 100 Oximetry 01/28/18 02:34 Temperature Pulse Rate 75 Respiratory 20 Rate Blood Pressure Blood Pressure 145/65 [Right] O2 Sat by Pulse 100 Oximetry - Reevaluation(s) Reevaluation #1: 01/28/18 05:55 Patient is stable on repeat examination, but requests medication for sleep, she is calm and cooperative. - Consultations Consultation #1: 01/28/18 05:57 Psychiatric assessment counselor, consulted, 0430 hrs., and agrees with patient admission and planned for 1013 confinement ED Medical Decision Making - Lab Data Result diagrams: 01/27/18 00:20 01/27/18 00:20 - Medical Decision Making Patient with past history of bipolar depressive disorder, with panic episodes, has had persistent thoughts of suicide, although no recent actual attempts, and no active plans, still is insistent that she has thoughts of suicide, but feels that she will likely due this Monday, having previously had attempt by taking extra pills 6 months ago. Believe the patient is serious, and although she is currently stable calm and cooperative, given the persistence of her radiation, she represents a significant risk for suicide. - Differential Diagnosis depression, suicidal ideation, acute psychosis Critical Care Time: No Critical care attestation.: If time is entered above; I have spent that time in minutes in the direct care of this critically ill patient, excluding procedure time. ED Disposition Disposition: [id number] PSY HOSP/PSY UNIT Is pt being admited?: No Does the pt Need Aspirin: No Condition: Stable Referrals: BEHZAD ABRAMS MD [Primary Care Provider] - 3-5 Days
[2018-01-28 00:40] LABS: BUN/Creatinine Ratio 13; Blood Urea Nitrogen 8 mg/dL (7-17); Calcium 8.7 mg/dL (8.4-10.2); Hemolysis Index 6
[2018-01-28 00:47] LABS: Hematocrit 36.8 % (30.3-42.9); Hemoglobin 12.1 gm/dl (10.1-14.3); Mean Corpuscular HGB Conc 33 % (30-34); Mean Corpuscular Hemoglobin 32 pg (28-32); Mean Corpuscular Volume 98 fl (79-97); Platelet Count 218 K/mm3 (140-440); Red Blood Count 3.74 M/mm3 (3.65-5.03); Red Cell Distribution Width 14.6 % (13.2-15.2)
[2018-01-28 01:52] LABS: Lymphocytes % (Auto) 51.7 % (13.4-35.0)
[2018-01-28 01:53] LABS: Basophils % (Auto) 0.4 % (0.0-1.8); Eosinophils # (Auto) 0.1 K/mm3 (0.0-0.4); Eosinophils % (Auto) 2.3 % (0.0-4.3); Lymphocytes # (Auto) 3.3 K/mm3 (1.2-5.4); Monocytes # (Auto) 0.4 K/mm3 (0.0-0.8); Monocytes % (Auto) 6.2 % (0.0-7.3)
[2018-01-28] MEDS ORDERED: ZOFRAN ODT ONE (02:20)
[2018-01-28] MEDS ORDERED: ZOFRAN ODT PO ONE (02:31)
[2018-01-28] MEDS ORDERED: ATIVAN ONE (04:49)
--- NOTE | 2018-01-28 13:16 | Consultation ---
History of Present Illness - Reason for Consult Consult date: 01/28/18 Reason for consult: Mental Health Evaluation Requesting physician: DANNA SALVADOR - Chief Complaint Chief complaint: "I'm suicidal" - History of Present Psychiatric Illness 67 y.o. white female presenting to [facility] for depression and SI's. Today the patient is calm and cooperative during the assessment. She stated being suicidal for several days. She stated having constant SI's. She stated that she plan to overdose on pills. She stated multiple suicide attempts in the past. She stated being "overwhelmed with life" and do not know what to do. She stated having 7 more ECT sessions left. She would not confirm or deny feeling better mentally after her ECT sessions. She stated a hx of Bipolar DO and TRUE. She stated that she takes Cleona and Klonopin. She stated that she have not had her medications in a week. She stated that she take Klonopin as needed. She denies HI's and AVH's. She denies erratic sleep and a poor appetite. She rate her depression 8/10, with 10 being the worse. She denies recreational drug use and alcohol consumption (etoh). Medications and Allergies Allergies Allergy/AdvReac Type Severity Reaction Status Date / Time lidocaine Allergy Itching Verified 07/14/17 13:58 hydrochlorothiazide AdvReac Unknown Verified 07/30/15 01:01 Home Medications Medication Instructions Recorded Confirmed Last Taken Type Phenytoin Sodium Extended 300 mg PO BID 12/29/17 01/28/18 Unknown History clonazePAM [Klonopin] 0.5 mg PO BID 12/29/17 01/28/18 Unknown History traZODone [Desyrel] 50 mg PO QHS 12/29/17 01/28/18 Unknown History AtorvaSTATin [Lipitor] 20 mg PO HS tablet 01/02/18 01/28/18 Unknown Rx Lisinopril [Zestril TAB] 10 mg PO QDAY tablet 01/02/18 01/28/18 Unknown Rx Nicotine [Habitrol] 14 mg TD QDAY patch 01/02/18 01/28/18 Unknown Rx QUEtiapine [SEROquel] 200 mg PO HS tablet 01/02/18 01/28/18 Unknown Rx amLODIPine [Norvasc] 5 mg PO DAILY tablet 01/02/18 01/28/18 Unknown Rx Gabapentin [Neurontin] 300 mg PO Q8HR 01/28/18 01/28/18 Unknown History Multivitamin Tab [Multiple Vitamin 1 each PO QDAY 01/28/18 01/28/18 Unknown History TAB (Theragran)] Past psychiatric history - Past Medical History Past Medical History: hypertension, seizures Past Surgical History: Other (Back surgery x 2, Colon surgery) - past Psychiatric treatment and history Psych: Bipolar Mental Status Exam - Vital signs Last Vital Signs Temp 97.6 F 01/28/18 07:53 Pulse 73 01/28/18 07:53 Resp 16 01/28/18 07:53 BP 140/71 01/28/18 07:53 Pulse Ox 100 01/28/18 07:53 - Exam Narrative exam: MSE: Appearance: calm, cooperative Behavior: regular eye contact Speech: regular rate and tone Mood: "depressed" withdrawn Affect: flat Thought Process: circumstantial Thought Content: denies HI's and AVH's Motor Activity: ambulatory Cognition: A/O x 3 Insight: variable Judgment: variable Results Result Diagrams: 01/27/18 00:20 01/27/18 00:20 Abnormal lab results 01/27/18 01/27/18 01/27/18 Range/Units 00:20 00:20 00:20 MCV (79-97) fl Lymph % (Auto) (13.4-35.0) % Seg Neutrophils % (40.0-70.0) % Sodium 135 L (137-145) mmol/L Carbon Dioxide 18 L (22-30) mmol/L Creatinine 0.6 L (0.7-1.2) mg/dL Glucose 110 H (65-100) mg/dL Urine WBC (Auto) (0.0-6.0) /HPF Salicylates < 0.3 L (2.8-20.0) mg/dL Acetaminophen < 5.0 L (10.0-30.0) ug/mL Phenytoin (10.0-20.0) ug/mL 01/27/18 01/27/18 01/27/18 Range/Units 00:20 00:20 14:43 MCV 98 H (79-97) fl Lymph % (Auto) 51.7 H (13.4-35.0) % Seg Neutrophils % 39.4 L (40.0-70.0) % Sodium (137-145) mmol/L Carbon Dioxide (22-30) mmol/L Creatinine (0.7-1.2) mg/dL Glucose (65-100) mg/dL Urine WBC (Auto) 113.0 H (0.0-6.0) /HPF Salicylates (2.8-20.0) mg/dL Acetaminophen (10.0-30.0) ug/mL Phenytoin 33.6 H (10.0-20.0) ug/mL All other labs normal. Assessment and Plan Assessment and plan: Impression: Unspecified Mood DO. Today the patient is calm and cooperative during the assessment. The patient endorses SI's. Elevated Phenytoin level. DDx: Bipolar DO, R/O MDD Recommendation/Plan: Continue 1013 with placement to inpatient psy services. Start Cleona 300 mg PO BID for mood and Klonopin 0.5 mg PO Q12 PRN for acute anxiety. Patient has a hx of hypertension and stated taking Lisinopril. CALLUM Inhibitors/Cleona can cause Cleona toxicity, try another alternative medication for the patient's hypertension. Discussed generalized coping skills with patient. Elevated Phenytoin to be addressed by the ER Physician.
[2018-01-28] MEDS ORDERED: ESKALITH PO SCH (14:00)
[2018-01-28 15:48] VITALS: BP 127/94
== END 2018-01-28 16:30 ==
LOC: ED 14:29
DX: F32.9 Major depressive disorder, single episode, unspecified (principal); R45.851 Suicidal ideations; G89.29 Other chronic pain; Z88.8 Allergy status to other drugs, medicaments and biological substances; I10 Essential (primary) hypertension; E78.00 Pure hypercholesterolemia, unspecified; F17.200 Nicotine dependence, unspecified, uncomplicated; R56.9 Unspecified convulsions; F41.0 Panic disorder [episodic paroxysmal anxiety]
CPT/HCPCS: 36415; 80048; 80178; 80185; 80307; 81001; 85025; 99285; G0480; 80320; J2060; Q0162

== ENCOUNTER 2019-02-02 10:40 | Emergency (ER) | payer MEDICARE ==
[2019-02-02] MEDS ORDERED: NACL 0.9% 1000 ML 1,000 ML IV ONE (10:59)
[2019-02-02 11:30] LABS: Bacteria,Urine 1+ /HPF (Negative); Bilirubin,Urine NEG (Negative); Blood,Urine NEG (Negative); Color,Urine Yellow (Yellow); Mucus,Urine FEW /HPF; Urobilinogen,Urine < 2.0 mg/dL (<2.0)
--- NOTE | 2019-02-02 11:59 | Emergency Department Report ---
ED Abdominal Pain HPI - General Chief Complaint: Abdominal Pain Stated Complaint: STOMACH PAIN Time Seen by Provider: 02/02/19 11:52 Source: patient Mode of arrival: Ambulatory Limitations: No Limitations - History of Present Illness Initial Comments: Patient is 68 years old female with history of laparotomy for years ago. Patient presented to the ER complaining of one-week history of abdominal pain, crampy in nature with no radiation. Pain associated with watery diarrhea. Patient denied any chills or fever. Patient denied any nausea or vomiting. MD Complaint: abdominal pain -: week(s) (1) Location: diffuse Radiation: none Migration to: no migration Severity: moderate Severity scale (0 -10): 4 Quality: cramping - Related Data Home Medications Medication Instructions Recorded Confirmed Last Taken Phenytoin Sodium Extended 300 mg PO BID 12/29/17 01/28/18 Unknown clonazePAM [Klonopin] 0.5 mg PO BID 12/29/17 01/28/18 Unknown traZODone [Desyrel] 50 mg PO QHS 12/29/17 01/28/18 Unknown Gabapentin [Neurontin] 300 mg PO Q8HR 01/28/18 01/28/18 Unknown Multivitamin Tab [Multiple Vitamin 1 each PO QDAY 01/28/18 01/28/18 Unknown TAB (Theragran)] Previous Rx's Medication Instructions Recorded Last Taken Type AtorvaSTATin [Lipitor] 20 mg PO HS tablet 01/02/18 Unknown Rx Lisinopril [Zestril TAB] 10 mg PO QDAY tablet 01/02/18 Unknown Rx Nicotine [Habitrol] 14 mg TD QDAY patch 01/02/18 Unknown Rx QUEtiapine [SEROquel] 200 mg PO HS tablet 01/02/18 Unknown Rx amLODIPine [Norvasc] 5 mg PO DAILY tablet 01/02/18 Unknown Rx Allergies Allergy/AdvReac Type Severity Reaction Status Date / Time lidocaine Allergy Itching Verified 02/02/19 10:44 hydrochlorothiazide AdvReac Unknown Verified 02/02/19 10:44 ED Review of Systems ROS: Stated complaint: STOMACH PAIN Other details as noted in HPI Comment: All other systems reviewed and negative Constitutional: denies: chills, fever Respiratory: denies: cough, orthopnea, shortness of breath, SOB with exertion, SOB at rest, wheezing Cardiovascular: denies: chest pain, palpitations Gastrointestinal: abdominal pain, diarrhea. denies: nausea, vomiting, constipation, hematemesis, melena, hematochezia Musculoskeletal: denies: back pain Neurological: denies: headache, weakness, numbness, paresthesias, confusion, abnormal gait ED Past Medical Hx - Past Medical History Hx Hypertension: Yes Hx Diabetes: No Hx Seizures: Yes Hx Psychiatric Treatment: Yes (depression, staying @ [facility], Bipolar, manic depression) Additional medical history: HIGH CHOLESTEROL, Back surgery x 2, DJD, Neuropathy, Colon surgery - Surgical History Hx Cholecystectomy: Yes Hx Appendectomy: Yes Additional Surgical History: back surgery x 2. colon surgery - Social History Smoking Status: Current Every Day Smoker Substance Use Type: None - Medications Home Medications: Home Medications Medication Instructions Recorded Confirmed Last Taken Type Phenytoin Sodium Extended 300 mg PO BID 12/29/17 01/28/18 Unknown History clonazePAM [Klonopin] 0.5 mg PO BID 12/29/17 01/28/18 Unknown History traZODone [Desyrel] 50 mg PO QHS 12/29/17 01/28/18 Unknown History AtorvaSTATin [Lipitor] 20 mg PO HS tablet 01/02/18 01/28/18 Unknown Rx Lisinopril [Zestril TAB] 10 mg PO QDAY tablet 01/02/18 01/28/18 Unknown Rx Nicotine [Habitrol] 14 mg TD QDAY patch 01/02/18 01/28/18 Unknown Rx QUEtiapine [SEROquel] 200 mg PO HS tablet 01/02/18 01/28/18 Unknown Rx amLODIPine [Norvasc] 5 mg PO DAILY tablet 01/02/18 01/28/18 Unknown Rx Gabapentin [Neurontin] 300 mg PO Q8HR 01/28/18 01/28/18 Unknown History Multivitamin Tab [Multiple Vitamin 1 each PO QDAY 01/28/18 01/28/18 Unknown Hist ory TAB (Theragran)] ED Physical Exam - General Limitations: No Limitations General appearance: alert, in no apparent distress - Head Head exam: Present: atraumatic, normocephalic, normal inspection - Eye Eye exam: Present: normal appearance, PERRL - ENT ENT exam: Present: normal exam, mucous membranes dry - Neck Neck exam: Present: normal inspection, full ROM. Absent: tenderness, meningismus, lymphadenopathy, thyromegaly - Respiratory Respiratory exam: Present: normal lung sounds bilaterally - Cardiovascular Cardiovascular Exam: Present: regular rate, normal rhythm, normal heart sounds - GI/Abdominal GI/Abdominal exam: Present: soft, normal bowel sounds. Absent: distended, tenderness, guarding, rebound, rigid, organomegaly, mass, bruit, pulsatile mass, hernia - Extremities Exam Extremities exam: Present: normal inspection, full ROM, normal capillary refill - Back Exam Back exam: Present: normal inspection, full ROM. Absent: CVA tenderness (R), CVA tenderness (L), muscle spasm, paraspinal tenderness, vertebral tenderness - Neurological Exam Neurological exam: Present: alert, oriented X3, CN II-XII intact, normal gait, reflexes normal. Absent: abnormal gait, motor sensory deficit - Skin Skin exam: Present: warm, intact, normal color ED Course Vital Signs 02/02/19 10:58 Temperature 98.0 F Pulse Rate 81 Respiratory 18 Rate Blood Pressure 143/71 O2 Sat by Pulse 99 Oximetry ED Medical Decision Making - Lab Data Result diagrams: 02/02/19 13:28 02/02/19 14:30 - Radiology Data Radiology results: report reviewed CT abdomen and pelvis with IV contrast showed no acute intra-abdominal finding. - Medical Decision Making Patient is 68 years old female with history of laparotomy for years ago. Patient presented to the ER complaining of one-week history of abdominal pain, crampy in nature with no radiation. Pain associated with watery diarrhea. Patient denied any chills or fever. Patient denied any nausea or vomiting. Patient remained stable. Labs reviewed and is unremarkable. CT abdomen and pelvis is IV contrast is negative for acute intra-abdominal finding. Since patient diarrhea has been going on for more 7 days, I will start patient on ciprofloxacin and Flagyl and advised patient to follow up with her primary care physician in the next 2-3 days and to return to the ER if symptoms are not improved. Critical care attestation.: If time is entered above; I have spent that time in minutes in the direct care of this critically ill patient, excluding procedure time. ED Disposition Clinical Impression: Abdominal pain, Diarrhea Disposition: TO HOME OR SELFCARE Is pt being admited?: No Condition: Stable Instructions: Abdominal Pain (ED), Acute Diarrhea (ED) Referrals: JAMI ALVAREZ [Other] - 3-5 Days
[2019-02-02 13:40] LABS: Basophils % (Auto) 0.5 % (0.0-1.8); Eosinophils # (Auto) 0.1 K/mm3 (0.0-0.4); Eosinophils % (Auto) 1.8 % (0.0-4.3); Hematocrit 40.7 % (30.3-42.9); Hemoglobin 13.7 gm/dl (10.1-14.3); Lymphocytes # (Auto) 2.2 K/mm3 (1.2-5.4); Lymphocytes % (Auto) 30.8 % (13.4-35.0); Mean Corpuscular HGB Conc 34 % (30-34); Mean Corpuscular Volume 98 fl (79-97); Monocytes # (Auto) 0.4 K/mm3 (0.0-0.8); Monocytes % (Auto) 5.7 % (0.0-7.3); Platelet Count 262 K/mm3 (140-440); Red Blood Count 4.16 M/mm3 (3.65-5.03); Red Cell Distribution Width 14.1 % (13.2-15.2)
[2019-02-02 15:14] LABS: Albumin 4.4 g/dL (3.9-5); BUN/Creatinine Ratio 22; Blood Urea Nitrogen 13 mg/dL (7-17); Calcium 9.8 mg/dL (8.4-10.2); Hemolysis Index 93
[2019-02-02 15:22] LABS: Alanine Aminotransferase 44 units/L (7-56)
--- NOTE | 2019-02-02 16:44 | Cat Scan Report ---
PROCEDURE: CT ABDOMEN PELVIS W CON TECHNIQUE: Following administration of IV contrast axial helical imaging was performed through the a bdomen and pelvis with sagittal and coronal reformatted images obtained. Delayed axial helical imagin g was also performed through the abdomen and pelvis. HISTORY: abdominal pain COMPARISONS: None FINDINGS: The lung bases are without infiltrate, pneumothorax or pleural fluid collection. The liver, spleen, pancreas and kidneys are unremarkable. There is mild enlargement of the adrenal glands bilaterally. The gallbladder is absent with surgical clips in the gallbladder fossa. The bowel is normal caliber. There is colonic diverticulosis without radiographic evidence of diverticulitis. The appendix is not definitively visualized. However, there is no evidence of inflammatory change in the expected location of the appendix. There is no evidence of pneumoperitoneum or free fluid. The abdominal aorta is normal caliber. There is atherosclerotic vascular calcification the large and medium caliber arteries. There is no evidence of intra-abdominal adenopathy. The urinary bladder is moderately distended and unremarkable. The uterus and adnexa are unremarkable. There is a small right femoral hernia that contains fat. The bony structures are notable for spondylitic change of the lumbar spine with multiple level degene rative disc and endplate change, multiple level degenerative facet change, grade 1 anterolisthesis L4 on L5 and the appearance of moderate to marked canal stenosis at the L4-L5 level. IMPRESSION: 1. No evidence of an acute intra-abdominal process. 2. Status post cholecystectomy. 3. Spondylitic change lumbar spine with the appearance of moderate to marked canal stenosis at the L4 -L5 level. 4. Mild prominence of the adrenal glands bilaterally. This is a nonspecific finding. Comparison with previous CT abdomen would be helpful to evaluate for the static or dynamic nature of this finding. This document is electronically signed by Priscila Santana MD., February 02 2019 04:42:32 PM ET
[2019-02-02 17:01] VITALS: BP 139/68
== END 2019-02-02 17:01 | disposition home or self-care (01) ==
LOC: ED 10:40
DX: R10.84 Generalized abdominal pain (principal); R19.7 Diarrhea, unspecified; I10 Essential (primary) hypertension; F31.9 Bipolar disorder, unspecified; E78.00 Pure hypercholesterolemia, unspecified; F17.200 Nicotine dependence, unspecified, uncomplicated; G62.9 Polyneuropathy, unspecified; Z90.49 Acquired absence of other specified parts of digestive tract; Z79.899 Other long term (current) drug therapy; Z88.8 Allergy status to other drugs, medicaments and biological substances
CPT/HCPCS: 36415; 74177; 80053; 81001; 85025; 99284; Q9967

== ENCOUNTER 2019-02-17 19:35 | Emergency (ER) | payer MEDICARE ==
--- NOTE | 2019-02-17 20:01 | Emergency Department Report ---
Chief Complaint: Medical Clearance Stated Complaint: MED CLEARANCE Time Seen by Provider: 02/17/19 19:58 - HPI History of Present Illness: Pt states she has a hx of bipolar, depression, seizures pt states she has SI today, states she would overdose states she has HI, states she would hurt the people she lives with in an apartment complex pt states she is having hallucinations visual and auditory states she needs medical clearance for [place] states she was last in a psych facility three months ago takes dilantin for seizures +smoker 1/2 PPD +drinker, states she had ETOH last night +morphine/oxycodone/sedative - Exam Vital Signs: Vital Signs 02/17/19 19:45 Temperature 97.7 F Pulse Rate 83 Respiratory 18 Rate Blood Pressure 159/85 O2 Sat by Pulse 100 Oximetry MSE screening note: Focused history and physical exam performed. Due to findings the following was ordered: mental health protocol ED Disposition for MSE Condition: Stable
--- NOTE | 2019-02-17 20:22 | Emergency Department Report ---
HPI - General Chief Complaint: Medical Clearance Time Seen by Provider: 02/17/19 19:58 - HPI HPI: Room 10 The patient is a 68-year-old female presented with a chief complaint of suicidal ideation. The patient states she has a history of bipolar disorder and has been compliant with all of her medication. However the patient states for the past 4 days she's had suicidal ideation. The patient states her plan was to overdose on drugs. The patient states she attempted to acquire heroin but was unsuccessful. Patient also admits to visual hallucinations seeing things such as skeletons, people, [place] Location: Mental state Duration: [See above] Quality: Suicidal ideation Severity: severe Modifying factors: [see above] Context: [see above] Mode of transportation: [not driving] ED Past Medical Hx - Past Medical History Previous Medical History?: Yes Hx Seizures: Yes Hx Psychiatric Treatment: Yes (staying @ [facility], Bipolar, manic depression) Additional medical history: HIGH CHOLESTEROL, Back surgery x 2, DJD, Neuropathy, Colon surgery - Surgical History Past Surgical History?: Yes Hx Cholecystectomy: Yes Hx Appendectomy: Yes Additional Surgical History: back surgery x 2. colon surgery. Port - Family History Family history: no significant - Social History Smoking Status: Current Every Day Smoker (3/4 pack per day) Substance Use Type: Alcohol (occasional), Prescribed (opiates) - Medications Home Medications: Home Medications Medication Instructions Recorded Confirmed Last Taken Type Phenytoin Sodium Extended 300 mg PO BID 12/29/17 01/28/18 Unknown History clonazePAM [Klonopin] 0.5 mg PO BID 12/29/17 01/28/18 Unknown History traZODone [Desyrel] 50 mg PO QHS 12/29/17 01/28/18 Unknown History AtorvaSTATin [Lipitor] 20 mg PO HS tablet 01/02/18 01/28/18 Unknown Rx Lisinopril [Zestril TAB] 10 mg PO QDAY tablet 01/02/18 01/28/18 Unknown Rx Nicotine [Habitrol] 14 mg TD QDAY patch 01/02/18 01/28/18 Unknown Rx QUEtiapine [SEROquel] 200 mg PO HS tablet 01/02/18 01/28/18 Unknown Rx amLODIPine [Norvasc] 5 mg PO DAILY tablet 01/02/18 01/28/18 Unknown Rx Gabapentin [Neurontin] 300 mg PO Q8HR 01/28/18 01/28/18 Unknown History Multivitamin Tab [Multiple Vitamin 1 each PO QDAY 01/28/18 01/28/18 Unknown History TAB (Theragran)] Ciprofloxacin HCl [Ciprofloxacin 500 mg PO Q12H #14 tab 02/02/19 Unknown Rx TAB] Ondansetron [Zofran Odt] 4 mg PO Q8HR PRN #14 tab.rapdis 02/02/19 Unknown Rx metroNIDAZOLE [Flagyl] 500 mg PO Q12HR #14 tab 02/02/19 Unknown Rx levoFLOXacin [Levaquin TAB] 500 mg PO QDAY #3 tablet 02/17/19 Unknown Rx ED Review of Systems ROS: Stated complaint: MED CLEARANCE Other details as noted in HPI Constitutional: no symptoms reported Eyes: denies: eye pain ENT: denies: throat pain Respiratory: no symptoms reported Cardiovascular: denies: chest pain Endocrine: no symptoms reported Gastrointestinal: denies: abdominal pain Genitourinary: denies: dysuria Musculoskeletal: denies: back pain Neurological: denies: headache Psychiatric: visual hallucinations, suicidal thoughts Physical Exam - Physical Exam Vital Signs: Vital Signs 02/17/19 02/17/19 19:45 19:58 Temperature 97.7 F 97.7 F Pulse Rate 83 88 Respiratory 18 18 Rate Blood Pressure 159/85 159/85 Blood Pressure 159/85 [Left] O2 Sat by Pulse 100 100 Oximetry Physical Exam: GENERAL: The patient is well-developed well-nourished female lying on stretcher not appear to be in acute distress. [] HEENT: Normocephalic. Atraumatic. Extraocular motions are intact. Patient has moist mucous membranes. NECK: Supple. Trachea midline CHEST/LUNGS: Clear to auscultation. There is no respiratory distress noted. HEART/CARDIOVASCULAR: Regular. There is no tachycardia. There is no gallop rub or murmur. ABDOMEN: Abdomen is soft, nontender. Patient has normal bowel sounds. There is no abdominal distention. SKIN: There is no rash. There is no edema. There is no diaphoresis. NEURO: The patient is awake, alert, and oriented. The patient is cooperative. The patient has no focal neurologic deficits. The patient has normal speech. Cranial nerves II through XII grossly intact, no drift MUSCULOSKELETAL: There is no evidence of acute injury. ED Course Vital Signs 02/17/19 02/17/19 19:45 19:58 Temperature 97.7 F 97.7 F Pulse Rate 83 88 Respiratory 18 18 Rate Blood Pressure 159/85 159/85 Blood Pressure 159/85 [Left] O2 Sat by Pulse 100 100 Oximetry ED Medical Decision Making - Lab Data Result diagrams: 02/17/19 20:20 02/17/19 20:20 Laboratory Tests 02/17/19 02/17/19 02/17/19 20:20 20:20 20:20 WBC 6.7 RBC 4.38 Hgb 14.3 Hct 42.5 MCV 97 MCH 33 H MCHC 34 RDW 13.6 Plt Count 275 Lymph % (Auto) [employer]ending [employer] [place] % (Auto) [employer]ending [employer] Eos % (Auto) [employer] Baso % (Auto) [employer]ending [employer] Lymph # [employer] [place] # [employer]ending [employer] Eos # Vending [employer]icer Baso # [employer]ending [employer]icer Seg Neutrophils % Vending [employer]icer Seg Neutrophils # Vending [employer]icer Sodium 139 Potassium 4.2 Chloride 103.1 Carbon Dioxide 19 L Anion Gap 21 BUN 7 Creatinine 0.6 L Estimated GFR > 60 BUN/Creatinine Ratio 12 Glucose 157 H Calcium 10.0 Total Bilirubin < 0.20 AST 34 ALT 81 H Alkaline Phosphatase 124 Total Protein 7.6 Albumin 4.2 Albumin/Globulin Ratio 1.2 Urine Color Urine Turbidity Urine pH Ur Specific [place] Urine Protein Urine Glucose (UA) Urine Ketones Urine Blood Urine Nitrite Urine Bilirubin Urine Urobilinogen Ur Leukocyte Esterase Urine WBC (Auto) Urine RBC (Auto) U Epithel Cells (Auto) Urine Mucus Salicylates < 0.3 L Urine Opiates Screen Urine Methadone Screen Acetaminophen Ur Barbiturates Screen Phenytoin 0.9 L Ur Phencyclidine Scrn Ur Amphetamines Screen U Benzodiazepines Scrn Urine Cocaine Screen U Marijuana (THC) Screen Drugs of Abuse Note Plasma/Serum Alcohol 02/17/19 02/17/19 02/17/19 20:20 20:20 20:47 WBC RBC Hgb Hct MCV MCH MCHC RDW Plt Count Lymph % (Auto) [place] % (Auto) Eos % (Auto) Baso % (Auto) Lymph # [place] # Eos # Baso # Seg Neutrophils % Seg Neutrophils # Sodium Potassium Chloride Carbon Dioxide Anion Gap BUN Creatinine Estimated GFR BUN/Creatinine Ratio Glucose Calcium Total Bilirubin AST ALT Alkaline Phosphatase Total Protein Albumin Albumin/Globulin Ratio Urine Color Yellow Urine Turbidity Slightly-cloudy Urine pH 6.0 Ur Specific [place] 1.010 Urine Protein <15 mg/dl Urine Glucose (UA) Neg Urine Ketones Neg Urine Blood Sm Urine Nitrite Neg Urine Bilirubin Neg Urine Urobilinogen < 2.0 Ur Leukocyte Esterase Lg Urine WBC (Auto) 24.0 H Urine RBC (Auto) 9.0 U Epithel Cells (Auto) 7.0 Urine Mucus Few Salicylates Urine Opiates Screen Urine Methadone Screen Acetaminophen < 5.0 L Ur Barbiturates Screen Phenytoin Ur Phencyclidine Scrn Ur Amphetamines Screen U Benzodiazepines Scrn Urine Cocaine Screen U Marijuana (THC) Screen Drugs of Abuse Note Plasma/Serum Alcohol < 0.01 02/17/19 20:47 WBC RBC Hgb Hct MCV MCH MCHC RDW Plt Count Lymph % (Auto) [place] % (Auto) Eos % (Auto) Baso % (Auto) Lymph # [place] # Eos # Baso # Seg Neutrophils % Seg Neutrophils # Sodium Potassium Chloride Carbon Dioxide Anion Gap BUN Creatinine Estimated GFR BUN/Creatinine Ratio Glucose Calcium Total Bilirubin AST ALT Alkaline Phosphatase Total Protein Albumin Albumin/Globulin Ratio Urine Color Urine Turbidity Urine pH Ur Specific [place] Urine Protein Urine Glucose (UA) Urine Ketones Urine Blood Urine Nitrite Urine Bilirubin Urine Urobilinogen Ur Leukocyte Esterase Urine WBC (Auto) Urine RBC (Auto) U Epithel Cells (Auto) Urine Mucus Salicylates Urine Opiates Screen Presumptive negative Urine Methadone Screen Presumptive negative Acetaminophen Ur Barbiturates Screen Presumptive negative Phenytoin Ur Phencyclidine Scrn Presumptive negative Ur Amphetamines Screen Presumptive negative U Benzodiazepines Scrn Presumptive negative Urine Cocaine Screen Presumptive negative U Marijuana (THC) Screen Presumptive negative Drugs of Abuse Note Disclamer Plasma/Serum Alcohol - Differential Diagnosis suicidal ideation, bipolar disorder Critical care attestation.: If time is entered above; I have spent that time in minutes in the direct care of this critically ill patient, excluding procedure time. ED Disposition Clinical Impression: Suicidal ideation, Visual hallucinations, UTI (urinary tract infection) Disposition: DC/TX-65 PSY HOSP/PSY UNIT Is pt being admited?: No Does the pt Need Aspirin: No Condition: Serious Prescriptions: levoFLOXacin [Levaquin TAB] 500 mg PO QDAY #3 tablet Time of Disposition: 21:45 (awaiting acceptance)
[2019-02-17 20:48] LABS: Hematocrit 42.5 % (30.3-42.9); Hemoglobin 14.3 gm/dl (10.1-14.3); Mean Corpuscular HGB Conc 34 % (30-34); Mean Corpuscular Volume 97 fl (79-97); Platelet Count 275 K/mm3 (140-440); Red Blood Count 4.38 M/mm3 (3.65-5.03); Red Cell Distribution Width 13.6 % (13.2-15.2)
[2019-02-17 20:57] LABS: Alanine Aminotransferase 81 units/L (7-56); Albumin 4.2 g/dL (3.9-5); BUN/Creatinine Ratio 12; Blood Urea Nitrogen 7 mg/dL (7-17); Hemolysis Index 37
[2019-02-17 21:17] LABS: Bilirubin,Urine NEG (Negative); Blood,Urine SM (Negative); Color,Urine Yellow (Yellow); Mucus,Urine FEW /HPF; Protein,Urine <15 mg/dL mg/dL (Negative); Urobilinogen,Urine < 2.0 mg/dL (<2.0)
[2019-02-17 21:27] LABS: Amphetamine Screen,Urine PRESUMPTIVE NEGATIVE; Benzodiazepines Screen,Urine PRESUMPTIVE NEGATIVE; Cannabinoid Screen,Urine PRESUMPTIVE NEGATIVE; Cocaine Screen,Urine PRESUMPTIVE NEGATIVE; Methadone Screen,Urine PRESUMPTIVE NEGATIVE; Opiate Screen,Urine PRESUMPTIVE NEGATIVE
[2019-02-17] MEDS ORDERED: CEREBYX 1,000 MG.PE in NACL 0.9% 100 ML IV ONE (21:43)
[2019-02-18 09:00] VITALS: BP 115/63
== END 2019-02-18 09:35 ==
LOC: ED 19:35
DX: R44.1 Visual hallucinations (principal); R45.851 Suicidal ideations; N39.0 Urinary tract infection, site not specified; E78.00 Pure hypercholesterolemia, unspecified; F17.200 Nicotine dependence, unspecified, uncomplicated; Z90.49 Acquired absence of other specified parts of digestive tract
CPT/HCPCS: 36415; 80053; 80185; 80307; 81001; 85025; 96365; 99285; G0480; Q2009; 80320

== ENCOUNTER 2021-04-20 10:25 | Emergency (ER) | payer MEDICARE ==
[2021-04-20 10:54] VITALS: BP 137/75
--- NOTE | 2021-04-20 12:13 | Emergency Department Report ---
ED General Adult HPI - General Chief complaint: Fall Stated complaint: FELL DOWN STAIRS Time Seen by Provider: 04/20/21 11:56 Source: patient, EMS Mode of arrival: Wheelchair Limitations: No Limitations - History of Present Illness Initial comments: Patient presents to the emergency department with 2 chief complaints. Patient states yesterday she fell down a flight of 13 steps hitting her head. Patient is not sure if she lost consciousness or not. Patient complains of neck pain as well as right hip pain and left knee pain. Patient also states that she is suicidal with a plan to take pain medications and to drink alcohol until she dies. Patient states she has 1 suicide attempt approximately 5 years ago via overdose with medications. Patient denies chest pain, shortness breath, does endorse having a headache status post fall yesterday. -: unknown Severity scale (0 -10): 3 Quality: aching Consistency: constant Improves with: rest Worsens with: movement Associated Symptoms: denies other symptoms Treatments Prior to Arrival: none - Related Data Home Medications Medication Instructions Recorded Confirmed Last Taken Phenytoin Sodium Extended 300 mg PO BID 12/29/17 01/28/18 Unknown clonazePAM [Klonopin] 0.5 mg PO BID 12/29/17 01/28/18 Unknown traZODone [Desyrel] 50 mg PO QHS 12/29/17 01/28/18 Unknown Gabapentin [Neurontin] 300 mg PO Q8HR 01/28/18 01/28/18 Unknown Multivitamin Tab [Multiple Vitamin 1 each PO QDAY 01/28/18 01/28/18 Unknown TAB (Theragran)] Previous Rx's Medication Instructions Recorded Last Taken Type AtorvaSTATin [Lipitor] 20 mg PO HS tablet 01/02/18 Unknown Rx Nicotine [Habitrol] 14 mg TD QDAY patch 01/02/18 Unknown Rx QUEtiapine [SEROquel] 200 mg PO HS tablet 01/02/18 Unknown Rx amLODIPine 5 mg PO DAILY tablet 01/02/18 Unknown Rx lisinopriL [Zestril TAB] 10 mg PO QDAY tablet 01/02/18 Unknown Rx Ciprofloxacin HCl [Ciprofloxacin 500 mg PO Q12H #14 tab 02/02/19 Unknown Rx TAB] Ondansetron [Zofran Odt] 4 mg PO Q8HR PRN #14 tab.rapdis 02/02/19 Unknown Rx metroNIDAZOLE [Flagyl] 500 mg PO Q12HR #14 tab 02/02/19 Unknown Rx levoFLOXacin [Levaquin TAB] 500 mg PO QDAY #3 tablet 02/17/19 Unknown Rx Allergies Allergy/AdvReac Type Severity Reaction Status Date / Time lidocaine Allergy Itching Verified 04/20/21 10:46 hydrochlorothiazide AdvReac Unknown Verified 04/20/21 10:46 ED Review of Systems ROS: Stated complaint: FELL DOWN STAIRS Other details as noted in HPI Constitutional: denies: chills, fever Eyes: denies: eye pain, eye discharge, vision change ENT: denies: ear pain, throat pain Respiratory: denies: cough, shortness of breath, wheezing Cardiovascular: denies: chest pain, palpitations Endocrine: no symptoms reported Gastrointestinal: denies: abdominal pain, nausea, diarrhea Genitourinary: denies: urgency, dysuria, discharge Musculoskeletal: other (Right hip pain, left knee pain, lower back pain). denies: back pain, joint swelling, arthralgia Skin: denies: rash, lesions Neurological: denies: headache, weakness, paresthesias Psychiatric: suicidal thoughts. denies: anxiety, depression Hematological/Lymphatic: denies: easy bleeding, easy bruising ED Past Medical Hx - Past Medical History Hx Hypertension: Yes Hx Diabetes: No Hx Seizures: Yes Hx Psychiatric Treatment: Yes (staying @ [facility], Bipolar, manic depression) Additional medical history: HIGH CHOLESTEROL, Back surgery x 2, DJD, Neuropathy, Colon surgery - Surgical History Hx Cholecystectomy: Yes Hx Appendectomy: Yes Additional Surgical History: back surgery x 2. colon surgery. Port - Social History Smoking Status: Current Every Day Smoker Substance Use Type: None - Medications Home Medications: Home Medications Medication Instructions Recorded Confirmed Last Taken Type Phenytoin Sodium Extended 300 mg PO BID 12/29/17 01/28/18 Unknown History clonazePAM [Klonopin] 0.5 mg PO BID 12/29/17 01/28/18 Unknown History traZODone [Desyrel] 50 mg PO QHS 12/29/17 01/28/18 Unknown History AtorvaSTATin [Lipitor] 20 mg PO HS tablet 01/02/18 01/28/18 Unknown Rx Nicotine [Habitrol] 14 mg TD QDAY patch 01/02/18 01/28/18 Unknown Rx QUEtiapine [SEROquel] 200 mg PO HS tablet 01/02/18 01/28/18 Unknown Rx amLODIPine 5 mg PO DAILY tablet 01/02/18 01/28/18 Unknown Rx lisinopriL [Zestril TAB] 10 mg PO QDAY tablet 01/02/18 01/28/18 Unknown Rx Gabapentin [Neurontin] 300 mg PO Q8HR 01/28/18 01/28/18 Unknown History Multivitamin Tab [Multiple Vitamin 1 each PO QDAY 01/28/18 01/28/18 Unknown History TAB (Theragran)] Ciprofloxacin HCl [Ciprofloxacin 500 mg PO Q12H #14 tab 02/02/19 Unknown Rx TAB] Ondansetron [Zofran Odt] 4 mg PO Q8HR PRN #14 tab.rapdis 02/02/19 Unknown Rx metroNIDAZOLE [Flagyl] 500 mg PO Q12HR #14 tab 02/02/19 Unknown Rx levoFLOXacin [Levaquin TAB] 500 mg PO QDAY #3 tablet 02/17/19 Unknown Rx ED Physical Exam - General Limitations: No Limitations General appearance: alert, in no apparent distress - Head Head exam: Present: atraumatic, normocephalic - Eye Eye exam: Present: normal appearance - ENT ENT exam: Present: mucous membranes moist - Neck Neck exam: Present: tenderness (Tenderness to midline C-spine) - Respiratory Respiratory exam: Present: normal lung sounds bilaterally. Absent: respiratory distress - Cardiovascular Cardiovascular Exam: Present: regular rate, normal rhythm. Absent: systolic murmur, diastolic murmur, rubs, gallop - GI/Abdominal GI/Abdominal exam: Present: soft, normal bowel sounds. Absent: distended, tenderness - Extremities Exam Extremities exam: Present: normal inspection - Back Exam Back exam: Present: normal inspection - Neurological Exam Neurological exam: Present: alert, oriented X3, CN II-XII intact. Absent: motor sensory deficit - Psychiatric Psychiatric exam: Present: normal affect, normal mood - Skin Skin exam: Present: warm, dry, intact, normal color. Absent: rash ED Course Vital Signs 04/20/21 10:53 Temperature 98.6 F Pulse Rate 94 H Respiratory 20 Rate Blood Pressure 137/75 O2 Sat by Pulse 97 Oximetry ED Medical Decision Making - Lab Data Result diagrams: 04/20/21 12:14 04/20/21 12:14 Lab Results 04/20/21 04/20/2104/20/21 Range/Units 12:14 12:14 12:14 WBC (4.5-11.0) K/mm3 RBC (3.65-5.03) M/mm3 Hgb (10.1-14.3) gm/dl Hct (30.3-42.9) % MCV (79-97) fl MCH (28-32) pg MCHC (30-34) % RDW (13.2-15.2) % Plt Count (140-440) K/mm3 Lymph % (Auto) (13.4-35.0) % [place] % (Auto) (0.0-7.3) % Eos % (Auto) (0.0-4.3) % Baso % (Auto) (0.0-1.8) % Lymph # (Auto) (1.2-5.4) K/mm3 [place] # (Auto) (0.0-0.8) K/mm3 Eos # (Auto) (0.0-0.4) K/mm3 Baso # (Auto) (0.0-0.1) K/mm3 Seg Neutrophils % (40.0-70.0) % Seg Neutrophils # (1.8-7.7) K/mm3 Sodium 136 L (137-145) mmol/L Potassium 4.3 (3.6-5.0) mmol/L Chloride 101.0 (98-107) mmol/L Carbon Dioxide 20 L (22-30) mmol/L Anion Gap 19 mmol/L BUN 13 (7-17) mg/dL Creatinine 0.9 (0.6-1.2) mg/dL Estimated GFR > 60 ml/min BUN/Creatinine Ratio 14 % Glucose 100 (65-100) mg/dL Calcium 9.6 (8.4-10.2) mg/dL Salicylates < 0.3 L (2.8-20.0) mg/dL Acetaminophen 6.5 L (10.0-30.0) ug/mL Plasma/Serum Alcohol (0-0.07) % 04/20/21 04/20/21 Range/Units 12:14 12:14 WBC 9.3 (4.5-11.0) K/mm3 RBC 4.74 (3.65-5.03) M/mm3 Hgb 14.4 H (10.1-14.3) gm/dl Hct 43.6 H (30.3-42.9) % MCV 92 (79-97) fl MCH 30 (28-32) pg MCHC 33 (30-34) % RDW 15.2 (13.2-15.2) % Plt Count 214 (140-440) K/mm3 Lymph % (Auto) 39.7 H (13.4-35.0) % [place] % (Auto) 3.7 (0.0-7.3) % Eos % (Auto) 0.5 (0.0-4.3) % Baso % (Auto) 0.3 (0.0-1.8) % Lymph # (Auto) 3.7 (1.2-5.4) K/mm3 [place] # (Auto) 0.3 (0.0-0.8) K/mm3 Eos # (Auto) 0.0 (0.0-0.4) K/mm3 Baso # (Auto) 0.0 (0.0-0.1) K/mm3 Seg Neutrophils % 55.8 (40.0-70.0) % Seg Neutrophils # 5.2 (1.8-7.7) K/mm3 Sodium (137-145) mmol/L Potassium (3.6-5.0) mmol/L Chloride (98-107) mmol/L Carbon Dioxide (22-30) mmol/L Anion Gap mmol/L BUN (7-17) mg/dL Creatinine (0.6-1.2) mg/dL Estimated GFR ml/min BUN/Creatinine Ratio % Glucose (65-100) mg/dL Calcium (8.4-10.2) mg/dL Salicylates (2.8-20.0) mg/dL Acetaminophen (10.0-30.0) ug/mL Plasma/Serum Alcohol < 0.01 (0-0.07) % - Medical Decision Making ED hold placed 1013 applied Mental health evaluation done Patient is medically clear Awaiting mental health evaluation Patient does not have UTI findings are consistent with a dirty catch especially in lieu of the negative nitrite finding Critical care attestation.: If time is entered above; I have spent that time in minutes in the direct care of this critically ill patient, excluding procedure time. ED Disposition Clinical Impression: Suicidal ideation Disposition: DC/TX-65 PSY HOSP/PSY UNIT Is pt being admited?: No Does the pt Need Aspirin: No Condition: Stable Referrals: PRIMARY CARE, [Primary Care Provider] - 3-5 Days
[2021-04-20 12:42] LABS: Basophils % (Auto) 0.3 % (0.0-1.8); Eosinophils % (Auto) 0.5 % (0.0-4.3); Hematocrit 43.6 % (30.3-42.9); Hemoglobin 14.4 gm/dl (10.1-14.3); Lymphocytes # (Auto) 3.7 K/mm3 (1.2-5.4); Lymphocytes % (Auto) 39.7 % (13.4-35.0); Mean Corpuscular HGB Conc 33 % (30-34); Mean Corpuscular Volume 92 fl (79-97); Monocytes # (Auto) 0.3 K/mm3 (0.0-0.8); Monocytes % (Auto) 3.7 % (0.0-7.3); Platelet Count 214 K/mm3 (140-440); Red Blood Count 4.74 M/mm3 (3.65-5.03); Red Cell Distribution Width 15.2 % (13.2-15.2)
[2021-04-20 13:02] LABS: BUN/Creatinine Ratio 14; Blood Urea Nitrogen 13 mg/dL (7-17); Calcium 9.6 mg/dL (8.4-10.2); Hemolysis Index 10
--- NOTE | 2021-04-20 13:09 | Cat Scan Report ---
CT BRAIN: 04/20/2021 INDICATION / CLINICAL INFORMATION: head injury. COMPARISON: None available. FINDINGS: BRAIN/INTRACRANIAL STRUCTURES: Unenhanced CT images of the brain were obtained and compared to a prio r exam from 12/29/2017. There is been no change. There is no evidence of acute abnormality. Ventricles and sulci are prominent in size, consistent wit h age-related atrophic change. There is no evidence of hemorrhage or mass. There are no abnormal extra-axial fluid collections. Atherosclerotic vascular calcifications are present in the distal internal carotid arteries and verte bral arteries. EXTRACRANIAL STRUCTURES: Unremarkable. IMPRESSION: No acute abnormality. Chronic and age-related changes. There is been no significant change when compared to prior exam. All CT scans at this location are performed using dose reduction to ALARA by means of automated expos ure control. Signer Name: Lucas Nieto MD Signed: 04/20/2021 1:05 PM Workstation Name: [id number]
--- NOTE | 2021-04-20 13:12 | Cat Scan Report ---
CT CERVICAL SPINE: 04/20/2021 INDICATION / CLINICAL INFORMATION: midline c spine TTP s/p fall. COMPARISON: None available. FINDINGS: CT images of the cervical spine were obtained. Images are evaluated in the axial, coronal, and sagitt al planes. There is no evidence of acute abnormality. Mild left convex scoliosis is present. Degenerative disc and facet changes are present throughout the cervical spine. Degenerative anterolis thesis is noted C3-4, C4-5, and C7-T1. CRANIOCERVICAL JUNCTION: Unremarkable. PARASPINAL STRUCTURES: Unremarkable IMPRESSION: No acute abnormality. Degenerative changes. All CT scans at this location are performed using dose reduction to ALARA by means of automated expos ure control. Signer Name: Lucas Nieto MD Signed: 04/20/2021 1:08 PM Workstation Name: [id number]
--- NOTE | 2021-04-20 13:53 | XRay Report ---
LUMBAR SPINE 3 VIEWS RIGHT HIP AND PELVIS 2 VIEWS LEFT KNEE 2 VIEWS INDICATION: Low back, right hip, and left knee pain after fall. COMPARISON: Left knee radiographs 07/22/2017. FINDINGS: Lumbar spine: Vertebral body height is maintained. No displaced fracture is seen. Minimal anterolisth esis of L4 on L5 is likely due to facet arthropathy. Moderate to advanced mid to lower lumbar spondyl osis involving the disks and facets. There is no SI joint diastases. Right hip/pelvis: No acute, displaced fracture or dislocation is seen. There is mild degenerative arianna nge at the pubic symphysis. There is also mild joint space narrowing at the hips, left greater than r ight. No foreign bodies. Left knee: No acute, displaced fracture or dislocation is seen. No joint effusion. IMPRESSION: 1. No acute findings. Signer Name: Umair Samuel MD Signed: 04/20/2021 1:48 PM Workstation Name: [id number]
[2021-04-20] MEDS ORDERED: ACETAMINOPHEN W/CODEINE 300-30 MG TAB PO ONE (14:46)
[2021-04-20] MEDS ORDERED: ONDANSETRON 4 MG ODT TAB PO ONE (14:47)
[2021-04-20 15:56] LABS: Amphetamine Screen,Urine Negative; Bacteria,Urine 1+ /HPF (Negative); Bilirubin,Urine NEG (Negative); Blood,Urine NEG (Negative); Cannabinoid Screen,Urine Negative; Cocaine Screen,Urine Negative; Color,Urine Yellow (Yellow); Methadone Screen,Urine Negative; Opiate Screen,Urine Negative; Protein,Urine <15 mg/dL mg/dL (Negative); Urobilinogen,Urine < 2.0 mg/dL (<2.0)
[2021-04-20 16:08] LABS: Benzodiazepines Screen,Urine Positive
== END 2021-04-20 21:33 ==
LOC: ED 10:25
DX: R45.851 Suicidal ideations (principal); I10 Essential (primary) hypertension; R56.9 Unspecified convulsions; F31.9 Bipolar disorder, unspecified; Z90.49 Acquired absence of other specified parts of digestive tract; Z98.890 Other specified postprocedural states; F17.200 Nicotine dependence, unspecified, uncomplicated; Z79.899 Other long term (current) drug therapy; Z88.8 Allergy status to other drugs, medicaments and biological substances
CPT/HCPCS: 36415; 70450; 72100; 72125; 80048; 80307; 80320; 81001; 85025; G0480; Q0162

== ENCOUNTER 2021-09-25 22:53 | Emergency (ER) | payer MEDICARE ==
--- NOTE | 2021-09-26 06:17 | Emergency Department Report ---
ED Lower Extremity HPI - General Chief Complaint: Extremity Injury, Lower Stated Complaint: SWOLLEN FOOT Source: patient Mode of arrival: Ambulatory Limitations: No Limitations - History of Present Illness Initial Comments: 71-year-old female patient in the [facility] states that she was running behind bus to catch it and hurt her left foot this past Maude was cont inued to throb today. She noticed there has been some swelling to the area as well reports no numbness or tingling. Pain is dull and throbbing worse with palpation and range of motion and ambulating. MD Complaint: knee injury, foot injury - Related Data Home Medications Medication Instructions Recorded Confirmed Last Taken Phenytoin Sodium Extended 300 mg PO BID 12/29/17 01/28/18 Unknown clonazePAM [Klonopin] 0.5 mg PO BID 12/29/17 01/28/18 Unknown traZODone [Desyrel] 50 mg PO QHS 12/29/17 01/28/18 Unknown Gabapentin [Neurontin] 300 mg PO Q8HR 01/28/18 01/28/18 Unknown Multivitamin Tab [Multiple Vitamin 1 each PO QDAY 01/28/18 01/28/18 Unknown TAB (Theragran)] Previous Rx's Medication Instructions Recorded Last Taken Type AtorvaSTATin [Lipitor] 20 mg PO HS tablet 01/02/18 Unknown Rx Nicotine [Habitrol] 14 mg TD QDAY patch 01/02/18 Unknown Rx QUEtiapine [SEROquel] 200 mg PO HS tablet 01/02/18 Unknown Rx amLODIPine 5 mg PO DAILY tablet 01/02/18 Unknown Rx lisinopriL [Zestril TAB] 10 mg PO QDAY tablet 01/02/18 Unknown Rx Ciprofloxacin HCl [Ciprofloxacin 500 mg PO Q12H #14 tab 02/02/19 Unknown Rx TAB] Ondansetron [Zofran Odt] 4 mg PO Q8HR PRN #14 tab.rapdis 02/02/19 Unknown Rx metroNIDAZOLE [Flagyl] 500 mg PO Q12HR #14 tab 02/02/19 Unknown Rx levoFLOXacin [Levaquin TAB] 500 mg PO QDAY #3 tablet 02/17/19 Unknown Rx Meloxicam [Mobic] 7.5 mg PO QDAY #10 tablet 09/26/21 Unknown Rx Allergies Allergy/AdvReac Type Severity Reaction Status Date / Time lidocaine Allergy Itching Verified 04/20/21 10:46 hydrochlorothiazide AdvReac Unknown Verified 04/20/21 10:46 ED Review of Systems ROS: Stated complaint: SWOLLEN FOOT Other details as noted in HPI Comment: All other systems reviewed and negative ED Past Medical Hx - Past Medical History Hx Hypertension: Yes Hx Diabetes: No Hx Seizures: Yes Hx Psychiatric Treatment: Yes (staying @ [facility], Bipolar, manic depression) Additional medical history: HIGH CHOLESTEROL, Back surgery x 2, DJD, Neuropathy, Colon surgery - Surgical History Hx Cholecystectomy: Yes Hx Appendectomy: Yes Additional Surgical History: back surgery x 2. colon surgery. Port - Social History Smoking Status: Current Every Day Smoker Substance Use Type: None - Medications Home Medications: Home Medications Medication Instructions Recorded Confirmed Last Taken Type Phenytoin Sodium Extended 300 mg PO BID 12/29/17 01/28/18 Unknown History clonazePAM [Klonopin] 0.5 mg PO BID 12/29/17 01/28/18 Unknown History traZODone [Desyrel] 50 mg PO QHS 12/29/17 01/28/18 Unknown History AtorvaSTATin [Lipitor] 20 mg PO HS tablet 01/02/18 01/28/18 Unknown Rx Nicotine [Habitrol] 14 mg TD QDAY patch 01/02/18 01/28/18 Unknown Rx QUEtiapine [SEROquel] 200 mg PO HS tablet 01/02/18 01/28/18 Unknown Rx amLODIPine 5 mg PO DAILY tablet 01/02/18 01/28/18 Unknown Rx lisinopriL [Zestril TAB] 10 mg PO QDAY tablet 01/02/18 01/28/18 Unknown Rx Gabapentin [Neurontin] 300 mg PO Q8HR 01/28/18 01/28/18 Unknown History Multivitamin Tab [Multiple Vitamin 1 each PO QDAY 01/28/18 01/28/18 Unknown History TAB (Theragran)] Ciprofloxacin HCl [Ciprofloxacin 500 mg PO Q12H #14 tab 02/02/19 Unknown Rx TAB] Ondansetron [Zofran Odt] 4 mg PO Q8HR PRN #14 tab.rapdis 02/02/19 Unknown Rx metroNIDAZOLE [Flagyl] 500 mg PO Q12HR #14 tab 02/02/19 Unknown Rx levoFLOXacin [Levaquin TAB] 500 mg PO QDAY #3 tablet 02/17/19 Unknown Rx Meloxicam [Mobic] 7.5 mg PO QDAY #10 tablet 09/26/21 Unknown Rx ED Physical Exam - General Limitations: No Limitations General appearance: alert, in no apparent distress - Head Head exam: Present: atraumatic, normocephalic - Eye Eye exam: Present: normal appearance, PERRL - ENT ENT exam: Present: normal exam, mucous membranes moist - Neck Neck exam: Present: normal inspection, full ROM - Respiratory Respiratory exam: Present: normal lung sounds bilaterally. Absent: respiratory distress, wheezes, rales - Cardiovascular Cardiovascular Exam: Present: regular rate, normal rhythm. Absent: systolic murmur, diastolic murmur, rubs, gallop - GI/Abdominal GI/Abdominal exam: Present: soft, normal bowel sounds - Extremities Exam Extremities exam: Present: normal inspection, tenderness (`), normal capillary refill - Expanded Lower Extremity Exam Left Foot/Toe exam: Present: tenderness, swelling, ecchymosis Neuro vascular tendon exam: Present: no vascular compromise 1 - Some tenderness and swelling to this region with some mild ecchymosis noted. Pulses are 2 or 2+ Right Knee exam: Present: full ROM, tenderness, full knee extension. Absent: lacerat ion, ecchymosis, deformity, effusion, pain w/ pronation/supination, pain/laxity with valgus, pain/laxity with varus - Back Exam Back exam: Present: normal inspection. Absent: CVA tenderness (R), CVA tenderness (L) - Neurological Exam Neurological exam: Present: alert, oriented X3 - Psychiatric Psychiatric exam: Present: normal affect, normal mood - Skin Skin exam: Present: warm, dry, intact, normal color. Absent: rash ED Course Vital Signs 09/26/21 00:28 Temperature 97.4 F L Pulse Rate 83 Respiratory 16 Rate Blood Pressure 161/87 [Left] O2 Sat by Pulse 98 Oximetry Critical care attestation.: If time is entered above; I have spent that time in minutes in the direct care of this critically ill patient, excluding procedure time. ED Disposition Condition: Stable Referrals: JAMI LAGUNA [Other] - 3-5 Days
--- NOTE | 2021-09-26 06:54 | XRay Report ---
RIGHT KNEE 3 VIEWS INDICATION / CLINICAL INFORMATION: Pain in right knee. COMPARISON: None available. FINDINGS: BONES and JOINT(S): No acute fracture or subluxation. Chondrocalcinosis is seen along the knee withou t significant degenerative changes. SOFT TISSUES: No significant abnormality. ADDITIONAL FINDINGS: None. IMPRESSION: 1. No acute findings. Signer Name: Lennox Higgins MD Signed: 09/26/2021 6:49 AM Workstation Name: [id number]
--- NOTE | 2021-09-26 06:55 | XRay Report ---
LEFT FOOT 3 VIEWS INDICATION / CLINICAL INFORMATION: Left foot pain and swelling. COMPARISON: None available. FINDINGS: BONES and JOINT(S): No acute fracture or subluxation. No significant arthritis. SOFT TISSUES: No significant abnormality. ADDITIONAL FINDINGS: None. IMPRESSION: 1. No acute findings. Signer Name: Lennox Higgins MD Signed: 09/26/2021 6:51 AM Workstation Name: [id number]
[2021-09-26 08:09] VITALS: BP 148/82
== END 2021-09-26 08:07 | disposition home or self-care (01) ==
LOC: ED 22:53
DX: R22.43 Localized swelling, mass and lump, lower limb, bilateral (principal); I10 Essential (primary) hypertension; Z88.4 Allergy status to anesthetic agent; F17.200 Nicotine dependence, unspecified, uncomplicated; Z90.49 Acquired absence of other specified parts of digestive tract
CPT/HCPCS: 99283